=== PATIENT | male | born 1975 ===

== ENCOUNTER 2020-07-19 02:28 | Inpatient (IN) | payer SELFPAY ==
[~2020-07-19] VITALS: Ht 172 cm; Wt 100.9 kg
[2020-07-19] VITALS (16 sets, daily range): BP systolic 132–177; BP diastolic 72–112
[~2020-07-19 02:28] MED LIST: ATOR40TA PO; GLYB5TAB6 PO; METF-380 PO; OMEG1CAP51 PO; OMEG1CAP74 PO; OMEP40CA36 PO; QUIN20TA PO
[2020-07-19] MEDS ORDERED: NS IV 1000 ML 1,000 ML IV SCH ×3 (02:51→16:20)
[2020-07-19] MEDS ORDERED: PANTOPRAZOLE 40 MG (PROTONIX) VIAL IV ONE (03:00)
[2020-07-19] MEDS ORDERED: ONDANSETRON 4 MG/2 ML (SDV) Z0FRAN IVP ONE ×2 (03:00→08:15)
[2020-07-19 03:07] LABS: BASOPHILS # (AUTO) 0.1 10^3/uL (0.0-0.1); BASOPHILS % (AUTO) 0 % (0-10); EOSINOPHILS % (AUTO) 0 % (0-10); HEMATOCRIT 41 % (40-54); HEMOGLOBIN 21.2 g/dL (13.3-17.7); LYMPHOCYTES # (AUTO) 1.8 10^3/uL (1.0-4.0); LYMPHOCYTES % (AUTO) 11 % (12-44); MEAN CORPUSCULAR HEMOGLOBIN 46 pg (25-34); MEAN CORPUSCULAR HGB CONC 52 g/dL (32-36); MEAN CORPUSCULAR VOLUME 88 fL (80-99); MEAN PLATELET VOLUME 10.8 fL (9.0-12.2); MONOCYTES # (AUTO) 0.8 10^3/uL (0.0-1.0); MONOCYTES % (AUTO) 5 % (0-12); NEUTROPHILS # (AUTO) 13.5 10^3/uL (1.8-7.8); NEUTROPHILS % (AUTO) 83 % (42-75); PLATELET COUNT 333 10^3/uL (130-400); WHITE BLOOD COUNT 16.2 10^3/uL (4.3-11.0)
--- NOTE | 2020-07-19 03:08 | ED Abdominal Pain ---
General Chief Complaint: Abdominal/GI Problems Stated Complaint: ABD PAIN,N/V Nursing Triage Note: Pt had sudden onset abdomnal pain yesterday; denies fever/n/v/d. Sepsis Screen: No Definite Risk Source of Information: Patient (LIMITED HISTORIAN) (LUZMA JENSEN DO) History of Present Illness Date Seen by Provider: Jul 19, 2020 Time Seen by Provider: 02:47 Initial Comments PT ARRIVES VIA POV FROM HOME C/O EPIGASTRIC AND LUQ PAIN RADIATING TO LEFT FLANK, SINCE YESTERDAY C/O NAUSEA, NO VOMITING--ATE NOODLES AROUND 1700 LAST BM YESTERDAY AFTERNOON NO FEVER, BUT HAS NOT CHECKED TEMP NO PROBLEMS URINATING AND VOIDING A NORMAL AMOUNT PT IS INSULIN DEPENDENT DIABETIC, BUT HAS NOT CHECKED BLOOD SUGAR LATELY PT STATES HE HAS HAD THE SAME THING IN THE PAST, BUT DOES NOT KNOW WHAT HE WAS DX WITH ADMITTED HERE 09/2011 WITH PANCREATITIS DENIES RECENT ALCOHOL USE PT WAS ADMITTED HERE IN 2005 WITH DKA PCP: [facility] (LUZMA JENSEN DO) Allergies and Home Medications Allergies Coded Allergies: NKANo Known Allergies (Verified Allergy, Unknown, 08/11/06) Home Medications Atorvastatin Calcium 40 Mg Tablet, 1 EACH PO DAILY, (Reported) Glyburide 5 Mg Tablet, 1 EACH PO BIDAC, (Reported) Metformin Hcl 1,000 Mg Tablet, 1 EACH PO BID WITH MEALS, (Reported) Compton-3 Fatty Acids/Fish Oil 1 Each Capsule, 2 EACH PO TID, (Reported) Omeprazole 40 Mg Capsule.dr, 40 MG PO DAILY, (Reported) Patient Home Medication List Home Medication List Reviewed: Yes (LUZMA JENSEN DO) Review of Systems Review of Systems Constitutional: no symptoms reported; No chills, No diaphoresis, No fever Respiratory: No Symptoms Reported Cardiovascular: No Symptoms Reported; Denies Chest Pain Gastrointestinal: See HPI, Abdominal Pain; Denies Constipated, Denies Diarrhea; Nausea, Poor Appetite; Denies Vomiting Genitourinary: No Symptoms Reported Musculoskeletal: see HPI, back pain Skin: no symptoms reported Psychiatric/Neurological: No Symptoms Reported Endocrine: No Symptoms Reported Hematologic/Lymphatic: No Symptoms Reported (LUZMA JENSEN DO) Past Rytdgho-Wpfreg-Cxhrue Hx Past Med/Social Hx: Reviewed and Corrections made (LUZMA JENSEN DO) Patient Social History Alcohol Use: Rarely Uses Recreational Drug Use: No Smoking Status: Current Everyday Smoker (1/2 PPD) Type Used: Cigarettes Recent Foreign Travel: No Contact w/Someone Who Travel: No Recent Infectious Disease Expo: No (LUZMA JENSEN DO) Immunizations Up To Date Date of Pneumonia Vaccine: Jul 23, 2006 Date of Influenza Vaccine: Aug 23, 2011 (LUZMA JENSEN DO) Past Medical History Surgeries: No Respiratory: No Cardiac: Yes High Cholesterol, Hypertension Neurological: No Reproductive Disorders: No Genitourinary: No Gastrointestinal: Yes (09/2011-ADMITTED WITH PANCREATITIS) Pancreatitis Musculoskeletal: No Endocrine: Yes (HX OF DKA) Diabetes, Insulin dep HEENT: No Cancer: No Psychosocial: No Integumentary: No Blood Disorders: No (LUZMA JENSEN DO) Physical Exam Vital Signs Vital Signs - First Documented 07/19/20 02:49 Temp 36.9 Pulse 103 Resp 24 B/P (MAP) 163/87 (112) Pulse Ox 94 O2 Delivery Room Air (ANETA HOYOS MD) Vital Signs Capillary Refill : Less Than 3 Seconds (LUZMA JENSEN DO) Height/Weight/BMI Height: 5'8.00" Weight: 210lbs. oz. 95.776648ds; 37.00 BMI Method: General Appearance: obese, other (LOOKS UNCOMFORTABLE, MOANING, HYPERVENTILATING) HEENT: PERRL/EOMI; No scleral icterus (R), No scleral icterus (L) Neck: normal inspection Respiratory: normal breath sounds, no respiratory distress, no accessory muscle use Cardiovascular: normal peripheral pulses, regular rate, rhythm, no edema, no murmur Gastrointestinal: abnormal bowel sounds (RARE), distended (VERY FIRM), rebound (EUQIVOCAL), tenderness (MIDL RUQ TENDERNESS, MODERATE EPIGASTRIC AND LUQ TENDERNESS, MILD LEFT FLANK TENDERNESS); No hernia, No mass Extremities: normal inspection, no pedal edema, normal capillary refill Back: CVA tenderness (L) 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, no motor/sensory deficits, alert, oriented x 3 Skin: warm/dry; No rash (LUZMA JENSEN DO) Progress/Results/Core Measures Results/Orders Lab Results Laboratory Tests Test 07/19/20 00:00 07/19/20 02:56 07/19/20 03:00 Range/Units Urine Color YELLOW Urine Clarity SL CLOUDY Urine pH 5.0 5-9 Urine Specific [place] 1.025 H 1.016-1.022 Urine Protein NEGATIVE NEGATIVE Urine Glucose (UA) 3+ H NEGATIVE Urine Ketones 3+ H NEGATIVE Urine Nitrite NEGATIVE NEGATIVE Urine Bilirubin NEGATIVE NEGATIVE Urine Urobilinogen 0.2 < = 1.0 MG/DL Urine Leukocyte Esterase NEGATIVE NEGATIVE Urine RBC (Auto) NEGATIVE NEGATIVE Urine RBC NONE /HPF Urine WBC NONE /HPF Urine Squamous Epithelial Cells RARE /HPF Urine Crystals NONE /LPF Urine Bacteria NEGATIVE /HPF Urine Casts NONE /LPF Urine Mucus NEGATIVE /LPF Urine Culture Indicated NO Glucometer 295 H 70-110 MG/DL White Blood Count 16.2 H 4.3-11.0 10^3/uL Red Blood Count 4.62 4.30-5.52 10^6/uL Hemoglobin 21.2 H 13.3-17.7 g/dL Hematocrit 41 40-54 % Mean Corpuscular Volume 88 80-99 fL Mean Corpuscular Hemoglobin 46 H 25-34 pg Mean Corpuscular Hemoglobin Concent 52 H 32-36 g/dL Red Cell Distribution Width 13.6 10.0-14.5 % Platelet Count 333 130-400 10^3/uL Mean Platelet Volume 10.8 9.0-12.2 fL Immature Granulocyte % (Auto) 1 % Neutrophils (%) (Auto) 83 H 42-75 % Lymphocytes (%) (Auto) 11 L 12-44 % Monocytes (%) (Auto) 5 0-12 % Eosinophils (%) (Auto) 0 0-10 % Basophils (%) (Auto) 0 0-10 % Neutrophils # (Auto) 13.5 H 1.8-7.8 10^3/uL Lymphocytes # (Auto) 1.8 1.0-4.0 10^3/uL Monocytes # (Auto) 0.8 0.0-1.0 10^3/uL Eosinophils # (Auto) 0.0 0.0-0.3 10^3/uL Basophils # (Auto) 0.1 0.0-0.1 10^3/uL Immature Granulocyte # (Auto) 0.1 0.0-0.1 10^3/uL Neutrophils % (Manual) 69 % Lymphocytes % (Manual) 9 % Monocytes % (Manual) 5 % Basophils % (Manual) 1 % Myelocytes % 2 % Band Neutrophils 13 % Nucleated Red Blood Cells 2 Atypical Lymphocytes 1 % Hypochromasia MARKED Poikilocytosis SLIGHT Basophilic Stippling MODERATE Anisocytosis MODERATE Microcytosis MODERATE Prothrombin Time 12.8 12.2-14.7 SEC INR Comment 0.9 0.8-1.4 Activated Partial Thromboplast Time 33 24-35 SEC Sodium Level 129 L 135-145 MMOL/L Potassium Level 3.4 L 3.6-5.0 MMOL/L Chloride Level 104 98-107 MMOL/L Carbon Dioxide Level < 25 21-32 MMOL/L Anion Gap 5-14 MMOL/L Blood Urea Nitrogen < 10 7-18 MG/DL Creatinine < 1.00 0.60-1.30 MG/DL Estimat Glomerular Filtration Rate > 60 BUN/Creatinine Ratio 10 Glucose Level 125 H 70-105 MG/DL Calcium Level 8.9 8.5-10.1 MG/DL Corrected Calcium 8.6 8.5-10.1 MG/DL Magnesium Level < 3.0 H 1.6-2.4 MG/DL Total Bilirubin 0.4 0.1-1.0 MG/DL Aspartate Amino Transf (AST/SGOT) 25 5-34 U/L Alkaline Phosphatase 71 40-136 U/L Total Protein 13.0 H 6.4-8.2 GM/DL Albumin 4.4 3.2-4.5 GM/DL Triglycerides Level 4658 H <150 MG/DL Cholesterol Level 549 H < 200 MG/DL LDL Cholesterol Direct 36 1-129 MG/DL VLDL Cholesterol 932 H 5-40 MG/DL HDL Cholesterol < 15 L 40-60 MG/DL Amylase Level 1223 H 25-125 U/L Lipase 2844 H 8-78 U/L Serum Alcohol <10 MG/DL (ANETA HOYOS MD) Medications Given in ED Current Medications Medications Dose Ordered Sig/Tran Route Start Time Stop Time Status Last Admin Dose Admin Fentanyl Citrate 50 mcg ONCE ONCE IVP 07/19/20 03:15 07/19/20 03:16 DC 07/19/20 03:11 50 MCG Ondansetron HCl 4 mg ONCE ONCE IVP 07/19/20 03:00 07/19/20 03:01 DC 07/19/20 03:08 4 MG Pantoprazole 40 mg ONCE ONCE IV 07/19/20 03:00 07/19/20 03:01 DC 07/19/20 03:08 40 MG (ANETA HOYOS MD) Vital Signs/I&O 07/19/20 07/19/20 02:49 06:37 Temp 36.9 Pulse 103 104 Resp 24 22 B/P (MAP) 163/87 (112) 160/88 Pulse Ox 94 97 O2 Delivery Room Air Room Air (ANETA HOYOS MD) Blood Pressure Mean: 112 Progress Progress Note : Progress Note PT GIVEN ZOFRAN, PROTONIX AND FENTANYL--NAUSEA RESOLVED, BUT NO IMPROVEMENT IN PAIN GIVEN MORPHINE-- GIVEN IV FLUIDS PT'S BLOOD WAS EXTREMELY LIPEMIC, AND UNABLE TO COMPLETE CHEMISTRY TESTS AFTER 2 LITERS OF FLUIDS, LAB REDRAWN 0600--CARE TURNED OVER TO DR. HOYSO, LAB AND CT PENDING (LUZMA JENSEN DO) Progress Note : Progress Note 0615: I have assumed care of the patient and reevaluated him. Pain is currently improved and nausea has resolved. He is resting peacefully. I discussed with him CT findings showing pancreatitis and he believes he is had that before. We are pending labs and I anticipate admission for pancreatitis. He is receiving his third liter of fluid currently. Monitor patient. 0705: We are still pending chemistry component including creatinine. I called lab and they're having difficulty due to the extreme lipemia and are continuing dilutions. I discussed with lab regarding the alcohol level and I do not believe the results as correct as it is incompatible with life. Patient is talking without difficulty and overall feeling better currently so I believe this is solution problem related and lipemia related. Pending labs. 0731: I have spoken with Dr. Mayes. Serum creatinine is noted to be less than 1. He is quite concentrated and quite lipemic. Patient will be admitted to the ICU and she has requested consult with Dr. Anne which was done. Patient has received a total of 3 L of IV fluid and we will continue normal saline at 200 mL an hour and the ICU. Admit, inpatient status. Patient agrees with plan. (ANETA HOYOS MD) Initial ECG Impression Date: Jul 19, 2020 Initial ECG Impression Time: 02:57 Initial ECG Rate: 92 Initial ECG Rhythm: Normal Sinus Initial ECG Comparisson: No Previous ECG Available (LUZMA JENSEN DO) Diagnostic Imaging Comments ABDOMINAL XRAYS--SBO VS ILEUS, PENDING RADIOLOGIST REVIEW (MIKEYLUZMA Padmini GOETZ) Diagonstic Imaging: CT Plain Films/CT/US/NM/MRI: abdomen, pelvis Comments [facility] [place], [place] NAME: [facility] REC#: [id number] PT STATUS: REG ER : 1975 PHYSICIAN: LUZMA JENSEN DO ADMIT DATE: 07/19/20/ER Draft Date of Exam:07/19/20 CT ABD/PELVIS WO(KIDNEY STONE) PROCEDURE: CT urinary tract, rule out kidney stone. TECHNIQUE: Multiple contiguous axial images were obtained through the abdomen and pelvis without the use of intravenous contrast. Auto Exposure Controls were utilized during the CT exam to meet ALARA standards for radiation dose reduction. INDICATION: Diffuse abdominal pain. COMPARISON: 10/21/2011. DISCUSSION: Atelectasis or scarring noted within the lung bases. Normal heart size. No pleural or pericardial fluid. Fatty hepatomegaly is present. The gallbladder is unremarkable. Marked inflammatory changes are noted along the entirety of the pancreas suggesting acute pancreatitis. No abscess or pseudocyst formation identified. The stomach, spleen, and adrenal glands are unremarkable. No renal stone or hydronephrosis. No obstruction, pneumatosis, or pneumoperitoneum. The prostate and urinary bladder are unremarkable. The appendix is normal. No ascites or pathologically enlarged lymph nodes identified. No acute osseous abnormality identified. Advanced degenerative disc disease noted at L5-S1. IMPRESSION: 1. Inflammatory changes noted along the pancreas as described, consistent with acute pancreatitis. 2. Agree with preliminary report. Dictated on workstation # [id number] Dict: 07/19/20 0647 Trans: 07/19/20 0651 [facility] [id number] Interpreted by: MARAL GUTIERREZ MD Electronically signed by: Reviewed: Reviewed Ninfa Ortega Study, Reviewed by Sd Diagonstic Imaging: Xray Plain Films/CT/US/NM/MRI: abdomen Comments [facility]. [place], [place] NAME: [facility] REC#: [id number] PT STATUS: REG ER : 1975 PHYSICIAN: LUZMA JENSEN DO ADMIT DATE: 07/19/20/ER Signed Date of Exam:07/19/20 ACUTE ABD SERIES Indication: Epigastric pain Abdomen series PA chest, supine and upright abdominal images are obtained IMPRESSION: Lungs are clear. There is no intraperitoneal free air. There is moderate gaseous distention of the small bowel. There is a moderate amount of stool in the colon which is relatively decompressed. IMPRESSION: Abnormal gas pattern. This could represent early small bowel obstruction. Dictated by: Dictated on workstation # [id number] Dict: 07/19/2047 Trans: 07/19/2048 [id number] Interpreted by: ANETA WALDROP MD Electronically signed by: ANETA WALDROP MD 07/19/2048 (ANETA HOYOS MD) Departure Communication (Admissions) Time/Spoke to Admitting Phy: 07:26 (ANETA HOYOS MD) Impression Primary Impression: Acute pancreatitis Qualified Codes: K85.90 - Acute pancreatitis without necrosis or infection, unspecified Additional Impressions: Uncontrolled diabetes mellitus Qualified Codes: E11.65 - Type 2 diabetes mellitus with hyperglycemia Hyperlipidemia Qualified Codes: E78.5 - Hyperlipidemia, unspecified Disposition: ADMITTED INPATIENT Condition: Stable Admissions Decision to Admit Reason: Admit from ER (General) Decision to Admit/Date: Jul 19, 2020 Time/Decision to Admit Time: 06:00 (ANETA HOYOS MD) Departure-Patient Inst. Referrals: [facility] (PCP) Primary Care Physician MALA WILDER (Family) Primary Care Physician LUZMA JENSEN DO Jul 19, 2020 03:08 ANETA HOYOS MD Jul 19, 2020 06:20
[2020-07-19] MEDS ORDERED: fentaNYL INJECTION 100 MCG/2 ML AMP IVP ONE (03:15)
[2020-07-19 03:19] LABS: INR 0.9 (0.8-1.4); PROTHROMBIN TIME PATIENT 12.8 SEC (12.2-14.7)
--- NOTE | 2020-07-19 03:29 | NUR ---
Late entry: Pt arrives with c/o diffuse abdominal pain to his epigastric area that radiates to his LUQ and around to his back. Pt denies n/v/d and fever. Pt states pain started yesterday afternoon. Pt is an IDDM who is non-compliant with his blood sugar checks; he states he hasn't checked his blood sugar in over 2 wks. Pt states that he had a similar episode like this a few years ago but can't remember the diagnosis. Pt to room; onto monitor. IV started, labs sent. Dr. Arboleda to room for eval. Meds given as ordered.
[2020-07-19 03:40] LABS: BILIRUBIN,URINE NEGATIVE (NEGATIVE); CLARITY,URINE SL CLOUDY; COLOR,URINE YELLOW; GLUCOSE, URINE (UA) 3+ (NEGATIVE); KETONES,URINE 3+ (NEGATIVE); LEUKOCYTE ESTERASE ,URINE NEGATIVE (NEGATIVE); NITRITE,URINE NEGATIVE (NEGATIVE); PROTEIN,URINE NEGATIVE (NEGATIVE)
[2020-07-19] MEDS ORDERED: fentaNYL INJECTION 100 MCG/2 ML AMP IVP STA (03:50)
[2020-07-19] MEDS: NS IV 1000 ML 1,000 ML IV SCH ×3 (04:00→18:30)
--- NOTE | 2020-07-19 04:06 | NUR ---
Lab called and notified Dr. Arboleda that pt's lab samples were lipemic. Labs will be delayed.
[2020-07-19 04:11] LABS: BACTERIA,URINE NEGATIVE /HPF; SQUAMOUS EPITHELIAL CELL,UR RARE /HPF
[2020-07-19 04:14] LABS: BAND NEUTROPHILS 13 %; LYMPHOCYTES % (MANUAL) 9 %; MONOCYTES % (MANUAL) 5 %; NEUTROPHILS % (MANUAL) 69 %
[2020-07-19 04:15] LABS: ANISOCYTOSIS MODERATE; ATYPICAL LYMPHOCYTES 1 %; BASOPHILS % (MANUAL) 1 %; HYPOCHROMASIA MARKED; MICROCYTOSIS MODERATE; MYELOCYTES % 2 %; NUCLEATED RED BLOOD CELLS 2; POIKILOCYTOSIS SLIGHT
--- NOTE | 2020-07-19 04:55 | NUR ---
Pt to CT by cart.
[2020-07-19] MEDS ORDERED: morphine INJ 10 MG/ML 1ML (SYR OR VIAL) IVP STA (05:24)
--- NOTE | 2020-07-19 06:30 | NUR ---
Report to DILMA Rogers
--- NOTE | 2020-07-19 06:34 | NUR ---
TELEPHONE REPORT RECEIVED FROM ED AT THIS TIME.
--- NOTE | 2020-07-19 06:50 | Diagnostic Imaging Report ---
Indication: Epigastric pain Abdomen series PA chest, supine and upright abdominal images are obtained IMPRESSION: Lungs are clear. There is no intraperitoneal free air. There is moderate gaseous distention of the small bowel. There is a moderate amount of stool in the colon which is relatively decompressed. IMPRESSION: Abnormal gas pattern. This could represent early small bowel obstruction. Dictated by: Dictated on workstation # [id number]
--- NOTE | 2020-07-19 06:51 | Diagnostic Imaging Report ---
PROCEDURE: CT urinary tract, rule out kidney stone. TECHNIQUE: Multiple contiguous axial images were obtained through the abdomen and pelvis without the use of intravenous contrast. Auto Exposure Controls were utilized during the CT exam to meet ALARA standards for radiation dose reduction. INDICATION: Diffuse abdominal pain. COMPARISON: 10/21/2011. DISCUSSION: Atelectasis or scarring noted within the lung bases. Normal heart size. No pleural or pericardial fluid. Fatty hepatomegaly is present. The gallbladder is unremarkable. Marked inflammatory changes are noted along the entirety of the pancreas suggesting acute pancreatitis. No abscess or pseudocyst formation identified. The stomach, spleen, and adrenal glands are unremarkable. No renal stone or hydronephrosis. No obstruction, pneumatosis, or pneumoperitoneum. The prostate and urinary bladder are unremarkable. The appendix is normal. No ascites or pathologically enlarged lymph nodes identified. No acute osseous abnormality identified. Advanced degenerative disc disease noted at L5-S1. IMPRESSION: 1. Inflammatory changes noted along the pancreas as described, consistent with acute pancreatitis. 2. Agree with preliminary report. Dictated by: Dictated on workstation # [id number]
--- NOTE | 2020-07-19 07:18 | NUR ---
REPORT CALLED BY BRETT TO FLOOR WATING FOR ORDER TO BE WRITTEN. FOR ADMIT.
--- NOTE | 2020-07-19 07:29 | NUR ---
ROOM CHANGED TO ICU. Addendum: 07/19/20 at 0738 by PMCCLURE CALLED FOR ROOM
--- NOTE | 2020-07-19 07:34 | NUR ---
TO ROOM NO NEW C/O PATIENT INFORMED GOING TO ICU INSTEAD OF 4TH FLOOR.
--- NOTE | 2020-07-19 07:38 | NUR ---
ICU WILL CALL WHEN READY FOR PATIENT.
--- NOTE | 2020-07-19 07:49 | NUR ---
CALLED AND GAVE UPDATE TO GAIL
--- NOTE | 2020-07-19 07:53 | NUR ---
ICE CHIPS GIVEN
[2020-07-19] MEDS ORDERED: morphine INJ 10 MG/ML 1ML (SYR OR VIAL) IVP ONE (08:00)
--- NOTE | 2020-07-19 08:07 | NUR ---
Ashok delaney in [facility] - 07/19/20 at 0808 by PMCCLURE PATIENT C/O NAUSEA AFTER MORPHINE GIVEN.
--- NOTE | 2020-07-19 08:08 | NUR ---
C/O NAUSEA AFTER PAIN MEDS
--- NOTE | 2020-07-19 08:12 | NUR ---
VODIED 1000CC
[2020-07-19 08:21] LABS: BILIRUBIN,TOTAL 0.4 MG/DL (0.1-1.0); CALCIUM 8.8 MG/DL (8.5-10.1); CARBON DIOXIDE 10 MMOL/L (21-32); CHLORIDE 103 MMOL/L (98-107); GLUCOSE 252 MG/DL (70-105); POTASSIUM 3.6 MMOL/L (3.6-5.0)
[2020-07-19 08:22] LABS: ALBUMIN 4.3 GM/DL (3.2-4.5); CHOLESTEROL 557 MG/DL (< 200); HDL CHOLESTEROL 17 MG/DL (40-60); TOTAL PROTEIN 13.1 GM/DL (6.4-8.2)
[2020-07-19 08:23] LABS: AMYLASE 1215 U/L (25-125); SODIUM 128 MMOL/L (135-145)
[2020-07-19 08:30] LABS: BUN/CREATININE RATIO 7; CREATININE SERUM 0.68 MG/DL (0.60-1.30); GFR ESTIMATED > 60; MAGNESIUM 1.6 MG/DL (1.6-2.4)
[2020-07-19 08:31] LABS: ALANINE AMINOTRANSFERASE 28 U/L (0-55); ALKALINE PHOSPHATASE 78 U/L (40-136)
[2020-07-19 08:32] LABS: TRIGLYCERIDES 7120 MG/DL (<150)
[2020-07-19 08:33] LABS: LIPASE 2656 U/L (8-78)
[2020-07-19] MEDS ORDERED: ONDANSETRON 4 MG/2 ML (SDV) Z0FRAN IV PRN (08:45)
--- NOTE | 2020-07-19 09:57 | Consultation - Surgery ---
History of Present Illness History of Present Illness Patient Consulted On(segundo/time) 07/19/20 09:51 Time Seen by Provider: 08:51 History of Present Illness Surgery asked to consult regarding Pancreatitis. HPI per ED: PT ARRIVES VIA POV FROM HOME C/O EPIGASTRIC AND LUQ PAIN RADIATING TO LEFT FLANK, SINCE YESTERDAY C/O NAUSEA, NO VOMITING--ATE NOODLES AROUND 1700 LAST BM YESTERDAY AFTERNOON NO FEVER, BUT HAS NOT CHECKED TEMP, NO PROBLEMS URINATING AND VOIDING A NORMAL AMOUNT PT IS INSULIN DEPENDENT DIABETIC, BUT HAS NOT CHECKED BLOOD SUGAR LATELY PT STATES HE HAS HAD THE SAME THING IN THE PAST, BUT DOES NOT KNOW WHAT HE WAS DX WITH. PT WAS ADMITTED HERE IN 2005 WITH DKA When I spoke to pt this am he states his pain is still severe, 10 out of 10 if he moves. He denies ever being told he has gallstones or having his gallbladder checked. Pain meds help a little. Pain radiates straight through to back. Allergies and Home Medications Allergies Coded Allergies: NKANo Known Allergies (Verified Allergy, Unknown, 08/11/06) Home Medications Atorvastatin Calcium 40 Mg Tablet, 1 EACH PO DAILY, (Reported) Glyburide 5 Mg Tablet, 1 EACH PO BIDAC, (Reported) Metformin Hcl 1,000 Mg Tablet, 1 EACH PO BID WITH MEALS, (Reported) [place]-3 Fatty Acids/Fish Oil 1 Each Capsule, 2 EACH PO TID, (Reported) Omeprazole 40 Mg Capsule.dr, 40 MG PO DAILY, (Reported) Patient Home Medication List Home Medication List Reviewed: Yes Past Igirhpr-Utazzv-Pasrhs Hx Patient Social History Alcohol Use: Occasionally Uses Recreational Drug Use: No Smoking Status: Former Smoker Type Used: Cigarettes Recent Foreign Travel: No Contact w/Someone Who Travel: No Recent Infectious Disease Expo: No Immunizations Up To Date Date of Pneumonia Vaccine: Jul 23, 2006 Date of Influenza Vaccine: Aug 23, 2011 Surgeries History of Surgeries: No Respiratory History of Respiratory Disorde: No Cardiovascular History of Cardiac Disorders: Yes Cardiac Disorders: High Cholesterol, Hypertension Neurological History of Neurological Disord: No Reproductive System Hx Reproductive Disorders: No Genitourinary History of Genitourinary Disor: No Gastrointestinal History of Gastrointestinal Di: No Musculoskeletal History of Musculoskeletal Dis: No Endocrine History of Endocrine Disorders: Yes (HX OF DKA) Endocrine Disorders: Diabetes, Insulin dep HEENT History of HEENT Disorders: No Cancer History of Cancer: No Psychosocial History of Psychiatric Problem: No Integumentary History of Skin or Integumenta: No Blood Transfusions History of Blood Disorders: No Family Medical History Significant Family History: Diabetes (parents) Review of Systems-General Constitutional: chills, diaphoresis, malaise, weakness EENTM: blurred vision; No double vision, No mouth pain, No mouth swelling, No epistaxis Respiratory: No dyspnea on exertion, No hemoptysis, No short of breath Cardiovascular: No chest pain, No edema, No Hx of Intervention, No palpitations Gastrointestinal: abdominal pain; No dysphagia, No hematemesis, No jaundice; nausea; No vomiting Genitourinary: No dysuria, No frequency, No hematuria Musculoskeletal: joint pain, joint swelling, muscle pain, muscle stiffness Skin: No change in color, No change in hair/nails Psychiatric/Neurological: Denies Anxiety, Denies Depressed, Denies Seizure, Denies Tremors Other pt denies any hx of abnormal bleeding or bruising Physical Exam-General Problems Physical Exam Vital Signs Vital Signs - First Documented 07/19/20 07/19/20 02:49 07:43 Temp 36.9 Pulse 103 Resp 24 B/P (MAP) 163/87 (112) Pulse Ox 94 O2 Delivery Room Air O2 Flow Rate 2.00 Capillary Refill : Less Than 3 Seconds General Appearance: WD/WN, mild distress Eyes: Bilateral Eye PERRL, Bilateral Eye EOMI HEENT: pharynx normal; No scleral icterus (R), No scleral icterus (L) Neck: non-tender, full range of motion, supple, normal inspection Respiratory: chest non-tender, lungs clear, normal breath sounds, no respiratory distress, no accessory muscle use Cardiovascular: no murmur, tachycardia Gastrointestinal: no organomegaly, distended, guarding, tenderness (diffusely) Back: no CVA tenderness, no vertebral tenderness Extremities: no pedal edema, no calf tenderness, normal capillary refill 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, no motor/sensory deficits, alert, normal mood/affect, oriented x 3 Skin: normal color, warm/dry Lymphatic: no adenopathy (neck, axilla or groin) Data Review Labs Laboratory Tests 07/19/20 00:00: Urine Color YELLOW, Urine Clarity SL CLOUDY, Urine pH 5.0, Urine Specific [place] 1.025H, Urine Protein NEGATIVE, Urine Glucose (UA) 3+H, Urine Ketones 3+H, Urine Nitrite NEGATIVE, Urine Bilirubin NEGATIVE, Urine Urobilinogen 0.2, Urine Leukocyte Esterase NEGATIVE, Urine RBC (Auto) NEGATIVE, Urine RBC NONE, Urine WBC NONE, Urine Squamous Epithelial Cells RARE, Urine Crystals NONE, Urine Bacteria NEGATIVE, Urine Casts NONE, Urine Mucus NEGATIVE, Urine Culture Indicated NO 07/19/20 02:56: Glucometer 295H 07/19/20 03:00: White Blood Count 16.2H, Red Blood Count 4.62, Hemoglobin 21.2H, Hematocrit 41, Mean Corpuscular Volume 88, Mean Corpuscular Hemoglobin 46H, Mean Corpuscular Hemoglobin Concent 52H, Red Cell Distribution Width 13.6, Platelet Count 333, Mean Platelet Volume 10.8, Immature Granulocyte % (Auto) 1, Neutrophils (%) (Auto) 83H, Lymphocytes (%) (Auto) 11L, Monocytes (%) (Auto) 5, Eosinophils (%) (Auto) 0, Basophils (%) (Auto) 0, Neutrophils # (Auto) 13.5H, Lymphocytes # (Auto) 1.8, Monocytes # (Auto) 0.8, Eosinophils # (Auto) 0.0, Basophils # (Auto) 0.1, Immature Granulocyte # (Auto) 0.1, Neutrophils % (Manual) 69, Lymphocytes % (Manual) 9, Monocytes % (Manual) 5, Basophils % (Manual) 1, Myelocytes % 2, Band Neutrophils 13, Nucleated Red Blood Cells 2, Atypical Lymphocytes 1, Hypochromasia MARKED, Poikilocytosis SLIGHT, Basophilic Stippling MODERATE, Ani socytosis MODERATE, Microcytosis MODERATE, Prothrombin Time 12.8, INR Comment 0.9, Activated Partial Thromboplast Time 33 07/19/20 05:32: Sodium Level 128L, Potassium Level 3.6, Chloride Level 103, Carbon Dioxide Level 10L, Anion Gap 15H, Blood Urea Nitrogen 5L, Creatinine 0.68, Estimat Glomerular Filtration Rate > 60, BUN/Creatinine Ratio 7, Glucose Level 252H, Calcium Level 8.8, Corrected Calcium 8.6, Magnesium Level 1.6, Total Bilirubin 0.4, Aspartate Amino Transf (AST/SGOT) 24, Alanine Aminotransferase (ALT/SGPT) 28, Alkaline Phosphatase 78, Total Protein 13.1H, Albumin 4.3, Triglycerides Level 7120H, Cholesterol Level 557H, LDL Cholesterol Direct 40, VLDL Cholesterol , HDL Cholesterol 17L, Amylase Level 1215H, Lipase 2656H, Serum Alcohol < 40H Radiology Date of Exam:07/19/20 CT ABD/PELVIS WO(KIDNEY STONE) PROCEDURE: CT urinary tract, rule out kidney stone. TECHNIQUE: Multiple contiguous axial images were obtained through the abdomen and pelvis without the use of intravenous contrast. Auto Exposure Controls were utilized during the CT exam to meet ALARA standards for radiation dose reduction. INDICATION: Diffuse abdominal pain. COMPARISON: 10/21/2011. DISCUSSION: Atelectasis or scarring noted within the lung bases. Normal heart size. No pleural or pericardial fluid. Fatty hepatomegaly is present. The gallbladder is unremarkable. Marked inflammatory changes are noted along the entirety of the pancreas suggesting acute pancreatitis. No abscess or pseudocyst formation identified. The stomach, spleen, and adrenal glands are unremarkable. No renal stone or hydronephrosis. No obstruction, pneumatosis, or pneumoperitoneum. The prostate and urinary bladder are unremarkable. The appendix is normal. No ascites or pathologically enlarged lymph nodes identified. No acute osseous abnormality identified. Advanced degenerative disc disease noted at L5-S1. IMPRESSION: 1. Inflammatory changes noted along the pancreas as described, consistent with acute pancreatitis. 2. Agree with preliminary report. Dictated on workstation # [id number] Dict: 07/19/20 0647 Trans: 07/19/20 0651 [facility] [id number] Interpreted by: MARAL GUTIERREZ MD Electronically signed by: Assessment/Plan Assessment/Plan Assessment/Plan Pancreatitis Hypertriglyceridemia Cholesterolemia Dehydration Hyponatremia Hyperglycemia Pt needs IV fluids, pain control, anti-emetics and monitor labs. Pt will need an US of gallbladder tomorrow, but most likely his pancreatitis is due to his Triglycerides. Max medical management, nothing surgical at this point. Clinical Quality Measures DVT/VTE Risk/Contraindication: Risk Factor Score Per Nursin RFS Level Per Nursing on Admit: 3=High NOE BARBOSA DO Jul 19, 2020 09:57
--- NOTE | 2020-07-19 11:08 | History & Physical-Hospitalist ---
History of Present Illness HPI/Chief Complaint CC: Abdominal pain HPI: This is a 45yoHM clinic patient of [facility] who presents to the ER with worsened abdominal pain for the past several days. 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 He has been 6 years and she is at the bedside. Triglycerides were elevated as the likely cause of acute pancreatitis noted on labs and CT scan. Dr Anne was consulted and will follow along. Hgb 20 so he is profoundly dehydrated and tachycardic. Dr Pinedo consulted. Source: patient, family, RN/MD Exam Limitations: no limitations Date Seen 07/19/20 Time Seen by a Provider: 11:00 Attending Physician Soni Mayes DO [facility] Referring Physician Date of Admission Jul 19, 2020 at 07:26 Home Medications & Allergies Home Medications Reviewed patient Home Medication Reconciliation performed by pharmacy medication reconciliations biometric fingerprinting technician and/or nursing. Patients Allergies have been reviewed. Allergies Allergies Coded Allergies NKANo Known Allergies (Verified Allergy, Unknown, 08/11/06) Past Caihrca-Mzguch-Ceqkfj Hx Past Med/Social Hx: Reviewed Nursing Past Med/Soc Hx, Reviewed and Corrections made Patient Social History Marrital Status: Employed/Student: employed Alcohol Use: Occasionally Uses Recreational Drug Use: No Smoking Status: Former Smoker Type Used: Cigarettes Recent Foreign Travel: No Contact w/other who traveled: No Recent Infectious Disease Expo: No Immunizations Up To Date Date of Pneumonia Vaccine: Jul 23, 2006 Date of Influenza Vaccine: Aug 23, 2011 Past Medical History Cardiac: High Cholesterol, Hypertension Reproductive: No Endocrine: Diabetes, Insulin dep History of Blood Disorders: No Family History Diabetes (parents) Review of Systems Constitutional: see HPI Gastrointestinal: abdominal pain, loss of appetite, nausea, vomiting Physical Exam Physical Exam Vital Signs Vital Signs - First Documented 07/19/20 07/19/20 02:49 07:43 Temp 36.9 Pulse 103 Resp 24 B/P (MAP) 163/87 (112) Pulse Ox 94 O2 Delivery Room Air O2 Flow Rate 2.00 Capillary Refill : Less Than 3 Seconds Height, Weight, BMI Height: 5'8.00" Weight: 210lbs. oz. 95.222230co; 34.37 BMI Method: General Appearance: Anxious, Chronically ill, Mild Distress, Obese Eyes: Right Eye Normal Inspection, Right Eye PERRL HEENT: PERRL/EOMI, Normal ENT Inspection, Pharynx Normal, Other (dry MM) Neck: Full Range of Motion, Normal Inspection, Non Tender Respiratory: Chest Non Tender, Lungs Clear, Normal Breath Sounds, No Accessory Muscle Use, No Respiratory Distress Cardiovascular: No Edema, No Gallop, No JVD, No Murmur, Normal Peripheral Pulses, Tachycardia Gastrointestinal: Normal Bowel Sounds, No Organomegaly, No Pulsatile Mass, Guarding, Tenderness Back: Normal Inspection, No CVA Tenderness, No Vertebral Tenderness Extremity: Normal Capillary Refill, Normal Inspection, Normal Range of Motion, Non Tender, No Calf Tenderness, No Pedal Edema Neurologic/Psychiatric: Alert, Oriented x3, No Motor/Sensory Deficits, Normal Mood/Affect, 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 Assessment/Plan Admission Diagnosis Assessment: Acute pancreatitis Profound dehydration Polycythemia secondary type DM HTN HLP Obesity Likely PARESH Plan: ICU care Aggressive IVF Consult Dr Pinedo Admission Status: Inpatient Order (span 2 midnights) Reason for Inpatient Admission: profound pancreatitis Diagnosis/Problems Diagnosis/Problems (1) Acute pancreatitis Status: Acute Qualifiers: Pancreatitis type: unspecified pancreatitis type Acute pancreatitis complication: unspecified Qualified Codes: K85.90 - Acute pancreatitis without necrosis or infection, unspecified (2) Uncontrolled diabetes mellitus Status: Acute Qualifiers: Diabetes mellitus type: type 2 Glycemic state: with hyperglycemia Qualified Codes: E11.65 - Type 2 diabetes mellitus with hyperglycemia (3) Hyperlipidemia Status: Acute Qualifiers: Hyperlipidemia type: unspecified Qualified Codes: E78.5 - Hyperlipidemia, unspecified Clinical Quality Measures DVT/VTE Risk/Contraindication: Risk Factor Score Per Nursin RFS Level Per Nursing on Admit: 3=High SONI MAYES DO Jul 19, 2020 11:08
[2020-07-19] MEDS: POTASSIUM CL 10MEQ/50ML IVPB 50 ML IV SCH ×11 (11:21→22:38)
[2020-07-19] MEDS: ENOXAPARIN 40 MG/0.4 ML (LOVENOX) SYR SC SCH (11:21)
[2020-07-19] MEDS: morphine INJ 10 MG/ML 1ML (SYR OR VIAL) IV PRN ×2 (11:23→20:26)
[2020-07-19] MEDS ORDERED: PIPERACILLIN/TAZOBACTAM (BULK) 4.5 GM in NS (IVPB) 100 ML IV NR (16:30)
[2020-07-19 16:44] LABS: BASOPHILS # (AUTO) 0.1 10^3/uL (0.0-0.1); BASOPHILS % (AUTO) 0 % (0-10); EOSINOPHILS % (AUTO) 0 % (0-10); HEMATOCRIT 45 % (40-54); HEMOGLOBIN 16.1 g/dL (13.3-17.7); LYMPHOCYTES # (AUTO) 1.4 10^3/uL (1.0-4.0); LYMPHOCYTES % (AUTO) 7 % (12-44); MEAN CORPUSCULAR HEMOGLOBIN 32 pg (25-34); MEAN CORPUSCULAR HGB CONC 36 g/dL (32-36); MEAN CORPUSCULAR VOLUME 89 fL (80-99); MEAN PLATELET VOLUME 11.1 fL (9.0-12.2); MONOCYTES # (AUTO) 0.9 10^3/uL (0.0-1.0); MONOCYTES % (AUTO) 5 % (0-12); NEUTROPHILS # (AUTO) 16.9 10^3/uL (1.8-7.8); NEUTROPHILS % (AUTO) 87 % (42-75); PLATELET COUNT 342 10^3/uL (130-400); WHITE BLOOD COUNT 19.5 10^3/uL (4.3-11.0)
[2020-07-19 16:55] LABS: CHLORIDE 112 MMOL/L (98-107); POTASSIUM 4.5 MMOL/L (3.6-5.0)
[2020-07-19 16:56] LABS: CALCIUM 9.3 MG/DL (8.5-10.1)
[2020-07-19 16:57] LABS: GLUCOSE 230 MG/DL (70-105); TRIGLYCERIDES 1096 MG/DL (<150)
[2020-07-19 16:58] LABS: TOTAL PROTEIN 7.3 GM/DL (6.4-8.2)
[2020-07-19 16:59] LABS: BILIRUBIN,TOTAL 0.3 MG/DL (0.1-1.0)
[2020-07-19 17:01] LABS: ALKALINE PHOSPHATASE 61 U/L (40-136); CREATININE SERUM 0.78 MG/DL (0.60-1.30); GFR ESTIMATED > 60; PHOSPHORUS 1.9 MG/DL (2.3-4.7)
[2020-07-19 17:02] LABS: BUN/CREATININE RATIO 5
[2020-07-19 17:04] LABS: ALANINE AMINOTRANSFERASE 25 U/L (0-55); MAGNESIUM 1.6 MG/DL (1.6-2.4)
[2020-07-19 17:13] LABS: CARBON DIOXIDE < 5 MMOL/L (21-32)
[2020-07-19] MEDS: 1/2 NS IV SOLUTION 1,000 ML IV SCH ×2 (17:14→20:06)
[2020-07-19 17:15] LABS: SODIUM 136 MMOL/L (135-145)
[2020-07-19] MEDS: D5 1/2 NS 1000 ML IV SOLUTION 1,000 ML IV SCH ×2 (17:30→22:38)
[2020-07-19] MEDS ORDERED: LACTATED RINGERS 1,000 ML IV ONE ×2 (18:15)
[2020-07-19 18:26] LABS: CLARITY,URINE CLEAR; COLOR,URINE YELLOW; GLUCOSE, URINE (UA) 3+ (NEGATIVE); KETONES,URINE 3+ (NEGATIVE); LEUKOCYTE ESTERASE ,URINE NEGATIVE (NEGATIVE); NITRITE,URINE NEGATIVE (NEGATIVE); PROTEIN,URINE 1+ (NEGATIVE)
[2020-07-19 18:36] LABS: BACTERIA,URINE TRACE /HPF; BILIRUBIN,URINE 1+ (NEGATIVE); SQUAMOUS EPITHELIAL CELL,UR 0-2 /HPF
[2020-07-19 21:26] LABS: CHLORIDE 115 MMOL/L (98-107); POTASSIUM 4.3 MMOL/L (3.6-5.0); SODIUM 137 MMOL/L (135-145)
[2020-07-19 21:28] LABS: CALCIUM 9.3 MG/DL (8.5-10.1); GLUCOSE 226 MG/DL (70-105)
[2020-07-19 21:32] LABS: CREATININE SERUM 0.64 MG/DL (0.60-1.30); GFR ESTIMATED > 60
[2020-07-19 21:33] LABS: BUN/CREATININE RATIO 6
[2020-07-19 21:46] LABS: CARBON DIOXIDE 9 MMOL/L (21-32)
[2020-07-19] MEDS: PIPERACILLIN/TAZOBACTAM (BULK) 4.5 GM in NS (IVPB) 100 ML IV SCH (22:38)
[2020-07-20] VITALS (24 sets, daily range): BP systolic 122–175; BP diastolic 69–106
[2020-07-20] MEDS: 1/2 NS IV SOLUTION 1,000 ML IV SCH ×6 (00:26→20:32)
[2020-07-20] MEDS: POTASSIUM CL 10MEQ/50ML IVPB 50 ML IV SCH ×7 (00:32→23:00)
[2020-07-20] MEDS: D5 1/2 NS 1000 ML IV SOLUTION 1,000 ML IV SCH ×4 (03:51→22:01)
--- NOTE | 2020-07-20 03:57 | Pulmonary Consultation ---
History of Present Illness History of Present Illness Date Seen by Provider: Jul 20, 2020 Time Seen by Provider: 03:51 Date of Admission Allergies and Home Medications Allergies Coded Allergies: NKANo Known Allergies (Verified Allergy, Unknown, 08/11/06) Home Medications Atorvastatin Calcium 40 Mg Tablet, 1 EACH PO DAILY, (Reported) Glyburide 5 Mg Tablet, 1 EACH PO BIDAC, (Reported) Metformin Hcl 1,000 Mg Tablet, 1 EACH PO BID WITH MEALS, (Reported) [place]-3 Fatty Acids/Fish Oil 1 Each Capsule, 2 EACH PO TID, (Reported) Omeprazole 40 Mg Capsule.dr, 40 MG PO DAILY, (Reported) Past Uccethj-Zuxjnd-Crbkxc Hx Past Med/Social Hx: Reviewed Nursing Past Med/Soc Hx, Reviewed and Corrections made Patient Social History Alcohol Use: Rarely Uses Recreational Drug Use: No Smoking Status: Current Everyday Smoker (1/2 PPD) Type Used: Cigarettes Recent Foreign Travel: No Contact w/Someone Who Travel: No Recent Infectious Disease Expo: No Immunizations Up To Date Date of Pneumonia Vaccine: Jul 23, 2006 Date of Influenza Vaccine: Aug 23, 2011 Past Medical History Surgeries: No Respiratory: No Cardiac: Yes High Cholesterol, Hypertension Neurological: No Reproductive Disorders: No Genitourinary: No Gastrointestinal: Yes (09/2011-ADMITTED WITH PANCREATITIS) Pancreatitis Musculoskeletal: No Endocrine: Yes (HX OF DKA) Diabetes, Insulin dep HEENT: No Cancer: No Psychosocial: No Integumentary: No Blood Disorders: No Family Medical History Diabetes (parents) Sepsis Event Evaluation Height, Weight, BMI Height: 5'8.00" Weight: 210lbs. oz. 95.436783iu; 34.37 BMI Method: Exam Exam Vital Signs Date Time Temp Pulse Resp B/P (MAP) Pulse Ox O2 Delivery O2 Flow Rate FiO2 07/20/20 03:35 36.8 07/20/20 02:00 112 31 161/86 (111) 94 Room Air 07/20/20 01:00 112 07/20/20 01:00 112 15 162/92 (115) 96 Room Air 07/20/20 00:00 114 22 151/85 (107) 94 Room Air 07/20/20 00:00 Room Air 07/19/20 23:39 36.8 07/19/20 23:00 116 22 159/72 (101) 96 Room Air 07/19/20 22:00 121 25 161/90 (113) 94 Room Air 07/19/20 21:10 118 29 177/99 (125) 95 Room Air 07/19/20 20:15 37.1 123 20 159/102 (121) 96 Room Air 07/19/20 20:00 36.9 07/19/20 20:00 Room Air 07/19/20 19:00 116 07/19/20 19:00 116 30 175/96 (122) 96 Room Air 07/19/20 18:30 36.6 07/19/20 18:00 146 19 160/91 (114) 93 Nasal Cannula 2.00 07/19/20 17:00 130 29 95 Nasal Cannula 2.00 07/19/20 16:00 38.0 07/19/20 16:00 Nasal Cannula 2.00 07/19/20 16:00 128 11 168/86 (113) 92 Nasal Cannula 2.00 07/19/20 15:56 Nasal Cannula 2.00 07/19/20 15:00 129 24 153/93 (113) 94 Nasal Cannula 2.00 07/19/20 14:00 128 27 145/89 (107) 94 Nasal Cannula 2.00 07/19/20 13:25 37.5 07/19/20 13:00 126 27 147/99 (115) 93 Nasal Cannula 2.00 07/19/20 12:52 129 07/19/20 12:00 Nasal Cannula 2.00 07/19/20 12:00 128 29 165/94 (117) 94 Nasal Cannula 2.00 07/19/20 11:00 122 34 161/101 (121) 96 Nasal Cannula 2.00 07/19/20 10:00 129 23 132/112 (119) 94 Nasal Cannula 2.00 07/19/20 09:41 37.6 127 18 164/89 95 Nasal Cannula 2.00 07/19/20 09:06 37.6 95 Nasal Cannula 2.00 07/19/20 08:53 127 07/19/20 08:31 37.9 121 18 164/89 (114) 91 Nasal Cannula 2.00 07/19/20 08:25 91 Nasal Cannula 2.00 07/19/20 08:20 177 18 177/98 96 Nasal Cannula 2.00 07/19/20 07:43 18 171/90 (117) 97 Nasal Cannula 2.00 07/19/20 06:37 104 22 160/88 97 Room Air I & O 07/20/20 07:00 Intake Total 3090 ml Output Total 4650 ml Balance -1560 ml Height & Weight Height: 5'8.00" Weight: 210lbs. oz. 95.592320vh; 34.37 BMI Method: General Appearance: Anxious, Chronically ill, Mild Distress, Obese HEENT: PERRL/EOMI, Normal ENT Inspection, Pharynx Normal, Other (dry MM) Neck: Full Range of Motion, Normal Inspection, Non Tender Respiratory: Chest Non Tender, Lungs Clear, Normal Breath Sounds, No Accessory Muscle Use, No Respiratory Distress Cardiovascular: No Edema, No Gallop, No JVD, No Murmur, Normal Peripheral Pulses, Tachycardia Capillary Refill: Less Than 3 Seconds Gastrointestinal: abnormal bowel sounds (RARE), distended (VERY FIRM), rebound (EUQIVOCAL), tenderness (MIDL RUQ TENDERNESS, MODERATE EPIGASTRIC AND LUQ TENDERNESS, MILD LEFT FLANK TENDERNESS); No hernia, No mass Extremity: Normal Capillary Refill, Normal Inspection, Normal Range of Motion, Non Tender, No Calf Tenderness, No Pedal Edema Neurologic/Psychiatric: Alert, Oriented x3, No Motor/Sensory Deficits, Normal Mood/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
[2020-07-20 04:15] LABS: BASOPHILS % (AUTO) 0 % (0-10); EOSINOPHILS % (AUTO) 0 % (0-10); HEMATOCRIT 41 % (40-54); HEMOGLOBIN 13.5 g/dL (13.3-17.7); LYMPHOCYTES # (AUTO) 0.6 10^3/uL (1.0-4.0); LYMPHOCYTES % (AUTO) 7 % (12-44); MEAN CORPUSCULAR HEMOGLOBIN 29 pg (25-34); MEAN CORPUSCULAR HGB CONC 33 g/dL (32-36); MEAN CORPUSCULAR VOLUME 88 fL (80-99); MONOCYTES # (AUTO) 0.4 10^3/uL (0.0-1.0); MONOCYTES % (AUTO) 5 % (0-12); NEUTROPHILS # (AUTO) 8.4 10^3/uL (1.8-7.8); NEUTROPHILS % (AUTO) 88 % (42-75); PLATELET COUNT 151 10^3/uL (130-400); WHITE BLOOD COUNT 9.6 10^3/uL (4.3-11.0)
[2020-07-20 04:27] LABS: ALANINE AMINOTRANSFERASE 18 U/L (0-55); ALBUMIN 3.4 GM/DL (3.2-4.5); ALKALINE PHOSPHATASE 55 U/L (40-136); BILIRUBIN,TOTAL 0.4 MG/DL (0.1-1.0); BUN/CREATININE RATIO 8; CALCIUM 9.5 MG/DL (8.5-10.1); CARBON DIOXIDE 14 MMOL/L (21-32); CHLORIDE 113 MMOL/L (98-107); CREATININE SERUM 0.62 MG/DL (0.60-1.30); GFR ESTIMATED > 60; GLUCOSE 211 MG/DL (70-105); PHOSPHORUS 1.1 MG/DL (2.3-4.7); POTASSIUM 3.8 MMOL/L (3.6-5.0); SODIUM 136 MMOL/L (135-145); TOTAL PROTEIN 6.4 GM/DL (6.4-8.2); TRIGLYCERIDES 351 MG/DL (<150)
[2020-07-20] MEDS: NS IV 1000 ML 1,000 ML IV SCH ×2 (05:08→12:54)
[2020-07-20] MEDS: MAGNESIUM 1 GM/100 ML IVPB 100 ML IV SCH ×3 (05:08→06:52)
[2020-07-20] MEDS: KCL 20 MEQ TAB (K-DUR) PO SCH (05:08)
[2020-07-20] MEDS: morphine INJ 10 MG/ML 1ML (SYR OR VIAL) IV PRN (05:41)
[2020-07-20] MEDS ORDERED: POTASSIUM PHOSPHATE INJ 30 MM in NS (IVPB) 250 ML IV ONE (06:00)
[2020-07-20 06:21] LABS: AMYLASE 565 U/L (25-125); LIPASE 660 U/L (8-78)
[2020-07-20] MEDS: PIPERACILLIN/TAZOBACTAM (BULK) 4.5 GM in NS (IVPB) 100 ML IV SCH ×3 (06:52→23:05)
--- NOTE | 2020-07-20 07:12 | Diagnostic Imaging Report ---
EXAMINATION: Chest 1 view HISTORY: Shortness of breath COMPARISON: None available. FINDINGS: Airspace opacity in the right base is noted. No pleural effusion or pneumothorax. Lung volumes are small. Heart size is normal. IMPRESSION: 1. Mild airspace opacity in the right base may represent atelectasis versus pneumonia. Dictated by: Dictated on workstation # [id number]
[2020-07-20] MEDS: PANTOPRAZOLE 40 MG (PROTONIX) VIAL IV SCH (08:30)
[2020-07-20] MEDS: ENOXAPARIN 40 MG/0.4 ML (LOVENOX) SYR SC SCH (08:30)
[2020-07-20 09:23] LABS: BUN/CREATININE RATIO 8; CALCIUM 9.1 MG/DL (8.5-10.1); CARBON DIOXIDE 14 MMOL/L (21-32); CHLORIDE 112 MMOL/L (98-107); CREATININE SERUM 0.64 MG/DL (0.60-1.30); GFR ESTIMATED > 60; GLUCOSE 250 MG/DL (70-105); POTASSIUM 3.9 MMOL/L (3.6-5.0); SODIUM 136 MMOL/L (135-145)
--- NOTE | 2020-07-20 10:57 | Progress Note ---
MITCHELL KIRK MED STUDENT 07/20/20 1057: Subjective Subjective/Events-last exam 45 yo M presents with acute pancreatitis. pt was awake talking on the phone. pt stated that his pain is currently rated as a 1 out of 10. pt described the pain as sharp. pt stated that the pain meds make the pain better and that nothing seems to make the pain worse. there was epigastric and LLQ tenderness to palpation. Review of Systems General: No Chills, No Fatigue Pulmonary: No Dyspnea, No Cough Cardiovascular: No: Chest Pain, Palpitations Gastrointestinal: Abdominal Pain; No: Nausea, Vomiting, Diarrhea, Constipation Genitourinary: No Dysuria, No Incontinence Focused Exam Lactate Level 07/19/20 16:32: Lactic Acid Level 1.15 Respiratory: Chest Non Tender, Lungs Clear, Normal Breath Sounds, No Accessory Muscle Use, No Respiratory Distress Cardiovascular: Regular Rate, Rhythm, No Edema, No Murmur, Normal Peripheral Pulses Peripheral Pulses: 2+ Carotid (R), 2+ Carotid (L), 2+ Dorsalis Pedis (R), 2+ Left Dors-Pedis (L), 2+ Radial Pulses (R), 2+ Radial Pulses (L) Skin: normal color, warm/dry; No diaphoresis Objective Exam Last Set of Vital Signs Vital Signs Date Time Temp Pulse Resp B/P (MAP) Pulse Ox O2 Delivery O2 Flow Rate FiO2 07/20/20 09:00 19 143/90 (107) 95 Room Air 07/20/20 08:30 37.1 07/20/20 06:00 115 07/19/20 20:15 Capillary Refill : Less Than 3 Seconds I&O Intake and Output 07/20/20 00:00 Intake Total 4920 ml Output Total 3750 ml Balance 1170 ml Intake Oral 500 ml IV Total 4420 ml Output Urine Total 3750 ml Daily Weight Change No No General: Alert, Oriented X3, No Acute Distress Neck: +2 Carotid Pulse No Bruit Heart: Regular Rate, No Murmurs Abdomen: Soft, Other (epigastric and LLQ tenderness) Extremities: No Cyanosis, Normal Pulses Results/Procedures Lab Laboratory Tests 07/19/20 16:32: White Blood Count 19.5H, Red Blood Count 5.02, Hemoglobin 16.1#, Hematocrit 45, Mean Corpuscular Volume 89, Mean Corpuscular Hemoglobin 32, Mean Corpuscular Hemoglobin Concent 36, Red Cell Distribution Width 14.6H, Platelet Count 342, Mean Platelet Volume 11.1, Immature Granulocyte % (Auto) 1, Neutrophils (%) (Auto) 87H, Lymphocytes (%) (Auto) 7L, Monocytes (%) (Auto) 5, Eosinophils (%) (Auto) 0, Basophils (%) (Auto) 0, Neutrophils # (Auto) 16.9H, Lymphocytes # (Auto) 1.4, Monocytes # (Auto) 0.9, Eosinophils # (Auto) 0.0, Basophils # (Auto) 0.1, Immature Granulocyte # (Auto) 0.2H, Sodium Level 136, Potassium Level 4.5, Chloride Level 112H, Carbon Dioxide Level < 5*L, Anion Gap 19H, Blood Urea Nitrogen 4L, Creatinine 0.78, Estimat Glomerular Filtration Rate > 60, BUN/Creatinine Ratio 5, Glucose Level 230H, Lactic Acid Level 1.15, Calcium Level 9.3, Corrected Calcium 9.3, Phosphorus Level 1.9L, Magnesium Level 1.6, Total Bilirubin 0.3, Aspartate Amino Transf (AST/SGOT) 20, Alanine Aminotransferase (ALT/SGPT) 25, Alkaline Phosphatase 61, Total Protein 7.3, Albumin 4.0, Triglycerides Level 1096H, Beta-Hydroxybutyrate (Chem panel) 4.73H 07/19/20 18:02: Urine Color YELLOW, Urine Clarity CLEAR, Urine pH 5.0, Urine Specific [place] >=1.030, Urine Protein 1+H, Urine Glucose (UA) 3+H, Urine Ketones 3+H, Urine Nitrite NEGATIVE, Urine Bilirubin 1+H, Urine Urobilinogen 0.2, Urine Leukocyte Esterase NEGATIVE, Urine RBC (Auto) 2+H, Urine RBC 5-10H, Urine WBC NONE, Urine Squamous Epithelial Cells 0-2, Urine Crystals NONE, Urine Bacteria TRACE, Urine Casts NONE, Urine Mucus SMALLH, Urine Culture Indicated NO 07/19/20 18:29: Glucometer 225H 07/19/20 19:30: Glucometer 256H 07/19/20 21:00: Glucometer 200H 07/19/20 21:06: Sodium Level 137, Potassium Level 4.3, Chloride Level 115H, Carbon Dioxide Level 9*L, Anion Gap 13, Blood Urea Nitrogen 4L, Creatinine 0.64, Estimat Glomerular Filtration Rate > 60, BUN/Creatinine Ratio 6, Glucose Level 226H, Calcium Level 9.3 07/19/20 22:25: Glucometer 203H 07/19/20 23:38: Glucometer 253H 07/20/20 00:34: Glucometer 242H 07/20/20 01:35: Glucometer 222H 07/20/20 02:37: Glucometer 238H 07/20/20 03:36: Glucometer 196H 07/20/20 03:48: White Blood Count 9.6, Red Blood Count 4.65, Hemoglobin 13.5, Hematocrit 41, Mean Corpuscular Volume 88, Mean Corpuscular Hemoglobin 29, Mean Corpuscular Hemoglobin Concent 33, Red Cell Distribution Width 14.4, Platelet Count 151, Mean Platelet Volume 11.0, Immature Granulocyte % (Auto) 1, Neutrophils (%) (Auto) 88H, Lymphocytes (%) (Auto) 7L, Monocytes (%) (Auto) 5, Eosinophils (%) (Auto) 0, Basophils (%) (Auto) 0, Neutrophils # (Auto) 8.4H, Lymphocytes # (Auto) 0.6L, Monocytes # (Auto) 0.4, Eosinophils # (Auto) 0.0, Basophils # (Auto) 0.0, Immature Granulocyte # (Auto) 0.1, Sodium Level 136, Potassium Level 3.8, Chloride Level 113H, Carbon Dioxide Level 14L, Anion Gap 9, Blood Urea Nitrogen 5L, Creatinine 0.62, Estimat Glomerular Filtration Rate > 60, BUN/Creatinine Ratio 8, Glucose Level 211H, Calcium Level 9.5, Corrected Calcium 10.0, Phosphorus Level 1.1L, Magnesium Level 1.6, Total Bilirubin 0.4, Aspartate Amino Transf (AST/SGOT) 18, Alanine Aminotransferase (ALT/SGPT) 18, Alkaline Phosphatase 55, Total Protein 6.4, Albumin 3.4, Triglycerides Level 351H, Amylase Level 565H, Lipase 660H 07/20/20 04:38: Glucometer 192H 07/20/20 05:33: Glucometer 219H 07/20/20 06:56: Glucometer 236H 07/20/20 08:27: Glucometer 208H 07/20/20 08:45: Sodium Level 136, Potassium Level 3.9, Chloride Level 112H, Carbon Dioxide Level 14L, Anion Gap 10, Blood Urea Nitrogen 5L, Creatinine 0.64, Estimat Glomerular Filtration Rate > 60, BUN/Creatinine Ratio 8, Glucose Level 250H, Calcium Level 9.1 07/20/20 09:47: Glucometer 239H 07/20/20 10:33: Glucometer 202H Microbiology 07/19/20 MRSA Screen - Final, Complete MRSA not isolated Radiology Date of Exam:07/19/20 CT ABD/PELVIS WO(KIDNEY STONE) PROCEDURE: CT urinary tract, rule out kidney stone. TECHNIQUE: Multiple contiguous axial images were obtained through the abdomen and pelvis without the use of intravenous contrast. Auto Exposure Controls were utilized during the CT exam to meet ALARA standards for radiation dose reduction. INDICATION: Diffuse abdominal pain. COMPARISON: 10/21/2011. DISCUSSION: Atelectasis or scarring noted within the lung bases. Normal heart size. No pleural or pericardial fluid. Fatty hepatomegaly is present. The gallbladder is unremarkable. Marked inflammatory changes are noted along the entirety of the pancreas suggesting acute pancreatitis. No abscess or pseudocyst formation identified. The stomach, spleen, and adrenal glands are unremarkable. No renal stone or hydronephrosis. No obstruction, pneumatosis, or pneumoperitoneum. The prostate and urinary bladder are unremarkable. The appendix is normal. No ascites or pathologically enlarged lymph nodes identified. No acute osseous abnormality identified. Advanced degenerative disc disease noted at L5-S1. IMPRESSION: 1. Inflammatory changes noted along the pancreas as described, consistent with acute pancreatitis. 2. Agree with preliminary report. Dictated on workstation # [id number] Dict: 07/19/20 0647 Trans: 07/19/20 0651 [facility] [id number] Interpreted by: MARAL GUTIERREZ MD Electronically signed by: Assessment/Plan Assessment/Plan Assessment & Plan 1 acute pancreatitis continue NPO status and IVF 2 uncontrolled diabetes mellitus continue glyburide, metformin continue IV insulin 3 hyperlipidemia continue atorvastatin 4 hypertension continue accupril 5 DVT prophylaxis continue lovenox injections Clinical Quality Measures DVT/VTE Risk/Contraindication: Risk Factor Score Per Nursin RFS Level Per Nursing on Admit: 3=High ZULEIMA ANAYA MD 07/20/20 5435: Subjective Subjective/Events-last exam Patient states that he is feeling much better and would like to eat and is thirsty. Still on insulin gtts at 14/hr. Gap is improving. No BM since monday. Review of Systems General: No Chills, No Fatigue Pulmonary: No Dyspnea, No Cough Cardiovascular: No: Chest Pain, Palpitations Gastrointestinal: Abdominal Pain; No: Nausea, Vomiting, Diarrhea, Constipation Neurological: No: Weakness, Numbness, Incoordination Objective Exam General: Alert, Oriented X3, No Acute Distress Lungs: Clear to Auscultation, Normal Air Movement Heart: Regular Rate, No Murmurs Abdomen: Normal Bowel Sounds, Soft, Other (epigastric and LLQ tenderness) Extremities: No Edema, No Tenderness/Swelling Skin: No Rashes, No Breakdown Neuro: Normal Speech, Strength at 5/5 X4 Ext, Sensation Intact, Cranial Nerves 3-12 NL Psych/Mental Status: Mental Status NL, Mood NL Assessment/Plan Assessment/Plan (1) DKA, type 2 Status: Acute Assessment & Plan: 07/20: Continue Insulin gtts until CO2 improves, will start 1/2 long acting insulin tonight and hope to get patient off drip in the AM Qualifiers: Qualified Codes: E11.10 - Type 2 diabetes mellitus with ketoacidosis without coma (2) Acute pancreatitis Status: Acute Assessment & Plan: 07/20: Likely 2/2 to elevated TG, Gallbladder normal on US today, Will start diet as pain is improved, will switch to PO pain medication, d/c IV morphine, start bowel medications Qualifiers: Qualified Codes: K85.90 - Acute pancreatitis without necrosis or infection, unspecified (3) Uncontrolled insulin dependent diabetes mellitus Status: Chronic (4) High triglycerides Status: Chronic (5) Hepatic steatosis Status: Chronic Assessment & Plan: 07/20: Seen on US Supervisory-Addendum Brief Supervisory Addendum Verification and Attestation of Medical Student E/M Service A medical student performed and documented this service in my presence. I reviewed and verified all information documented by the medical student and made modifications to such information, when appropriate. I personally performed the physical exam and medical decision making. Zuleima Anaya, Jul 20, 2020,17:36 MITCHELL KIRK MED STUDENT Jul 20, 2020 10:57 ZULEIMA ANAYA MD Jul 20, 2020 17:36
--- NOTE | 2020-07-20 11:55 | Diagnostic Imaging Report ---
PROCEDURE: US Gallbladder. TECHNIQUE: Multiple real-time grayscale images were obtained over the right upper quadrant in various projections. INDICATION: Pancreatitis. Evaluate for gallstones. COMPARISON: CT abdomen and pelvis performed on 07/19/2020. FINDINGS: Liver: There is diffuse increased echogenicity of the hepatic parenchyma. No focal lesion is seen. Appropriate hepatopetal flow is demonstrated in the main portal vein. Gallbladder: Normal. No stones or gallbladder wall thickening. No pericholecystic fluid. Negative sonographic Addison's sign. Biliary Tree: No intrahepatic or extrahepatic bile duct dilation is identified. The common duct is not well seen. Pancreas: Obscured by overlying bowel gas. Right kidney: Normal parenchymal echotexture and thickness. No hydronephrosis, stone or mass. Other: The aorta and IVC are not well seen, obscured by overlying bowel gas. No abdominal free fluid is appreciated. IMPRESSION: Evaluation is limited by overlying bowel gas, with obscuration of the pancreas. Echogenic liver, likely reflecting hepatic steatosis, or other hepatocellular disease. No cholelithiasis is appreciated. The common bile duct is not well seen. Dictated by: Dictated on workstation # [id number]
[2020-07-20 12:18] LABS: BUN/CREATININE RATIO 8; CALCIUM 9.4 MG/DL (8.5-10.1); CARBON DIOXIDE 17 MMOL/L (21-32); CHLORIDE 113 MMOL/L (98-107); CREATININE SERUM 0.59 MG/DL (0.60-1.30); GFR ESTIMATED > 60; GLUCOSE 153 MG/DL (70-105); PHOSPHORUS 1.3 MG/DL (2.3-4.7); POTASSIUM 3.6 MMOL/L (3.6-5.0); SODIUM 138 MMOL/L (135-145)
[2020-07-20] MEDS: SENNA W/DOCUSATE (SENOKOT S) TABLET PO SCH ×2 (12:53→20:57)
--- NOTE | 2020-07-20 12:58 | Progress Note - Surgery ---
XIOMARA CAM MED STUDENT 07/20/20 1258: Subjective Date Seen by a Provider: Jul 20, 2020 Time Seen by a Provider: 09:55 Subjective/Events-last exam Juventino states his pain has decreased, now 2/10. Says his pain is located at the upper abdomen and left side, and that it slightly worsens with pressure. He denies fever, chills, nausea, vomiting, chest pain, SOB, abdominal pain, and diarrhea. Focused Exam Lactate Level 07/19/20 16:32: Lactic Acid Level 1.15 Objective Exam Vital Signs Date Time Temp Pulse Resp B/P (MAP) Pulse Ox O2 Delivery O2 Flow Rate FiO2 07/20/20 12:00 138/83 (101) 97 Room Air 07/20/20 11:00 132/83 (99) 95 Room Air 07/20/20 10:00 157/85 (109) 96 Room Air 07/20/20 09:00 19 143/90 (107) 95 Room Air 07/20/20 08:30 37.1 07/20/20 08:00 Room Air 07/20/20 08:00 27 134/69 (90) 97 Room Air 07/20/20 07:00 21 136/87 (103) 94 Room Air 07/20/20 06:00 115 21 132/80 (97) 95 Room Air 07/20/20 05:44 116 07/20/20 05:00 107 15 136/72 (93) 94 Room Air 07/20/20 04:00 109 18 158/91 (113) 96 Room Air 07/20/20 03:59 Room Air 07/20/20 03:35 36.8 07/20/20 03:00 109 20 140/87 (104) 95 Room Air 07/20/20 02:00 112 31 161/86 (111) 94 Room Air 07/20/20 01:00 112 07/20/20 01:00 112 15 162/92 (115) 96 Room Air 07/20/20 00:00 114 22 151/85 (107) 94 Room Air 07/20/20 00:00 Room Air 07/19/20 23:39 36.8 07/19/20 23:00 116 22 159/72 (101) 96 Room Air 07/19/20 22:00 121 25 161/90 (113) 94 Room Air 07/19/20 21:10 118 29 177/99 (125) 95 Room Air 07/19/20 20:15 37.1 123 20 159/102 (121) 96 Room Air 07/19/20 20:00 36.9 07/19/20 20:00 Room Air 07/19/20 19:00 116 07/19/20 19:00 116 30 175/96 (122) 96 Room Air 07/19/20 18:30 36.6 07/19/20 18:00 146 19 160/91 (114) 93 Nasal Cannula 2.00 07/19/20 17:00 130 29 95 Nasal Cannula 2.00 07/19/20 16:00 38.0 07/19/20 16:00 Nasal Cannula 2.00 07/19/20 16:00 128 11 168/86 (113) 92 Nasal Cannula 2.00 07/19/20 15:56 Nasal Cannula 2.00 07/19/20 15:00 129 24 153/93 (113) 94 Nasal Cannula 2.00 07/19/20 14:00 128 27 145/89 (107) 94 Nasal Cannula 2.00 07/19/20 13:25 37.5 07/19/20 13:00 126 27 147/99 (115) 93 Nasal Cannula 2.00 07/19/20 12:52 129 I & O 07/20/20 07:00 Intake Total 4290 ml Output Total 5300 ml Balance -1010 ml Capillary Refill : Less Than 3 Seconds General Appearance: WD/WN, Obese HEENT: PERRL/EOMI, Normal ENT Inspection, Pharynx Normal, Other (dry MM) Neck: Full Range of Motion, Normal Inspection, Non Tender Respiratory: Chest Non Tender, Lungs Clear, Normal Breath Sounds, No Accessory Muscle Use, No Respiratory Distress Cardiovascular: Regular Rate, Rhythm, No Edema, No Murmur, Normal Peripheral Pulses Peripheral Pulses: 2+ Carotid (R), 2+ Carotid (L), 2+ Dorsalis Pedis (R), 2+ Left Dors-Pedis (L), 2+ Radial Pulses (R), 2+ Radial Pulses (L) Gastrointestinal: No guarding, No rebound; tenderness (Mild epigastric, suprapubic, and left sided abdominal tenderness. No RLQ or RUQ tenderness. ); No hernia, No mass Extremity: Normal Capillary Refill, Normal Inspection, Normal Range of Motion, Non Tender, No Calf Tenderness, No Pedal Edema Neurologic/Psychiatric: Alert, Oriented x3, Normal Mood/Affect Skin: Normal Color, Warm/Dry Lymphatic: No Adenopathy Results Lab Laboratory Tests 07/19/20 16:32: White Blood Count 19.5H, Red Blood Count 5.02, Hemoglobin 16.1#, Hematocrit 45, Mean Corpuscular Volume 89, Mean Corpuscular Hemoglobin 32, Mean Corpuscular Hemoglobin Concent 36, Red Cell Distribution Width 14.6H, Platelet Count 342, Mean Platelet Volume 11.1, Immature Granulocyte % (Auto) 1, Neutrophils (%) (Auto) 87H, Lymphocytes (%) (Auto) 7L, Monocytes (%) (Auto) 5, Eosinophils (%) (Auto) 0, Basophils (%) (Auto) 0, Neutrophils # (Auto) 16.9H, Lymphocytes # (Auto) 1.4, Monocytes # (Auto) 0.9, Eosinophils # (Auto) 0.0, Basophils # (Auto) 0.1, Immature Granulocyte # (Auto) 0.2H, Sodium Level 136, Potassium Level 4.5, Chloride Level 112H, Carbon Dioxide Level < 5*L, Anion Gap 19H, Blood Urea Nitrogen 4L, Creatinine 0.78, Estimat Glomerular Filtration Rate > 60, BUN/Creatinine Ratio 5, Glucose Level 230H, Lactic Acid Level 1.15, Calcium Level 9.3, Corrected Calcium 9.3, Phosphorus Level 1.9L, Magnesium Level 1.6, Total Bilirubin 0.3, Aspartate Amino Transf (AST/SGOT) 20, Alanine Aminotransferase (ALT/SGPT) 25, Alkaline Phosphatase 61, Total Protein 7.3, Albumin 4.0, Triglycerides Level 1096H, Beta-Hydroxybutyrate (Chem panel) 4.73H 07/19/20 18:02: Urine Color YELLOW, Urine Clarity CLEAR, Urine pH 5.0, Urine Specific [place] >=1.030, Urine Protein 1+H, Urine Glucose (UA) 3+H, Urine Ketones 3+H, Urine Nitrite NEGATIVE, Urine Bilirubin 1+H, Urine Urobilinogen 0.2, Urine Leukocyte Esterase NEGATIVE, Urine RBC (Auto) 2+H, Urine RBC 5-10H, Urine WBC NONE, Urine Squamous Epithelial Cells 0-2, Urine Crystals NONE, Urine Bacteria TRACE, Urine Casts NONE, Urine Mucus SMALLH, Urine Culture Indicated NO 07/19/20 18:29: Glucometer 225H 07/19/20 19:30: Glucometer 256H 07/19/20 21:00: Glucometer 200H 07/19/20 21:06: Sodium Level 137, Potassium Level 4.3, Chloride Level 115H, Carbon Dioxide Level 9*L, Anion Gap 13, Blood Urea Nitrogen 4L, Creatinine 0.64, Estimat Glomerular Filtration Rate > 60, BUN/Creatinine Ratio 6, Glucose Level 226H, Calcium Level 9.3 07/19/20 22:25: Glucometer 203H 07/19/20 23:38: Glucometer 253H 07/20/20 00:34: Glucometer 242H 07/20/20 01:35: Glucometer 222H 07/20/20 02:37: Glucometer 238H 07/20/20 03:36: Glucometer 196H 07/20/20 03:48: White Blood Count 9.6, Red Blood Count 4.65, Hemoglobin 13.5, Hematocrit 41, Mean Corpuscular Volume 88, Mean Corpuscular Hemoglobin 29, Mean Corpuscular He moglobin Concent 33, Red Cell Distribution Width 14.4, Platelet Count 151, Mean Platelet Volume 11.0, Immature Granulocyte % (Auto) 1, Neutrophils (%) (Auto) 88H, Lymphocytes (%) (Auto) 7L, Monocytes (%) (Auto) 5, Eosinophils (%) (Auto) 0, Basophils (%) (Auto) 0, Neutrophils # (Auto) 8.4H, Lymphocytes # (Auto) 0.6L, Monocytes # (Auto) 0.4, Eosinophils # (Auto) 0.0, Basophils # (Auto) 0.0, Immature Granulocyte # (Auto) 0.1, Sodium Level 136, Potassium Level 3.8, Chloride Level 113H, Carbon Dioxide Level 14L, Anion Gap 9, Blood Urea Nitrogen 5L, Creatinine 0.62, Estimat Glomerular Filtration Rate > 60, BUN/Creatinine Ratio 8, Glucose Level 211H, Calcium Level 9.5, Corrected Calcium 10.0, Phosphorus Level 1.1L, Magnesium Level 1.6, Total Bilirubin 0.4, Aspartate Amino Transf (AST/SGOT) 18, Alanine Aminotransferase (ALT/SGPT) 18, Alkaline Phosphatase 55, Total Protein 6.4, Albumin 3.4, Triglycerides Level 351H, Amylase Level 565H, Lipase 660H 07/20/20 04:38: Glucometer 192H 07/20/20 05:33: Glucometer 219H 07/20/20 06:56: Glucometer 236H 07/20/20 08:27: Glucometer 208H 07/20/20 08:45: Sodium Level 136, Potassium Level 3.9, Chloride Level 112H, Carbon Dioxide Level 14L, Anion Gap 10, Blood Urea Nitrogen 5L, Creatinine 0.64, Estimat Glomerular Filtration Rate > 60, BUN/Creatinine Ratio 8, Glucose Level 250H, Calcium Level 9.1 07/20/20 09:47: Glucometer 239H 07/20/20 10:33: Glucometer 202H 07/20/20 11:29: Glucometer 158H 07/20/20 11:47: Sodium Level 138, Potassium Level 3.6, Chloride Level 113H, Carbon Dioxide Level 17L, Anion Gap 8, Blood Urea Nitrogen 5L, Creatinine 0.59L, Estimat Glomerular F iltration Rate > 60, BUN/Creatinine Ratio 8, Glucose Level 153H, Calcium Level 9.4, Phosphorus Level 1.3L 07/20/20 12:20: Glucometer 185H Microbiology 07/19/20 MRSA Screen - Final, Complete MRSA not isolated Assessment/Plan Assessment/Plan Assessment/Plan Pancreatitis Hypertriglyceridemia Cholesterolemia Dehydration Hyponatremia Hyperglycemia Pt needs IV fluids, pain control, anti-emetics and monitor labs. US was negative for stones, sludge. Pancreatitis likely caused by triglycerides Medical management, nothing surgical at this point. Clinical Quality Measures DVT/VTE Risk/Contraindication: Risk Factor Score Per Nursin RFS Level Per Nursing on Admit: 3=High STEVENSNO CASTILLO DO 07/20/202020: Subjective Subjective/Events-last exam Patient states he is feeling better than yesterday. He still has pain in the epigastric area currently he rates it at a 2 out of 10. He states if it is touched though it does increase. He is currently n.p.o. He denies any fever sweats chills shortness of breath or chest pain at this time. Objective Exam General Appearance: WD/WN, Obese HEENT: PERRL/EOMI, Normal ENT Inspection, Other (dry MM) Neck: Full Range of Motion, Normal Inspection, Non Tender Respiratory: Chest Non Tender, No Accessory Muscle Use, No Respiratory Distress Cardiovascular: Regular Rate, Rhythm, No Edema Gastrointestinal: soft; No guarding, No rebound; tenderness (Epigastric ab dominal area no guarding or rebounding); No hernia, No mass Extremity: Normal Inspection, Non Tender, No Calf Tenderness Neurologic/Psychiatric: Alert, Oriented x3, Normal Mood/Affect Skin: Normal Color, Warm/Dry Lymphatic: No Adenopathy Assessment/Plan Assessment/Plan Assessment/Plan Pancreatitis Hypertriglyceridemia Cholesterolemia Dehydration Hyponatremia Hyperglycemia Pt needs IV fluids, pain control, anti-emetics and monitor labs. US was negative for stones, sludge. Pancreatitis likely caused by triglycerides Medical management, nothing surgical at this point. We will continue n.p.o. and if continues to feel better start liquids tomorrow Supervisory-Addendum Brief Verification & Attestation Participated in pt care: history, MDM, physical Personally performed: exam, history, MDM, supervision of care Care discussed with: Medical Student Procedures: n/a Results interpretation: Verified all documentation Verification and Attestation of Medical Student E/M Service A medical student performed and documented this service in my presence. I reviewed and verified all information documented by the medical student and made modifications to such information, when appropriate. I personally performed the physical exam and medical decision making. Stevenson Castillo, Jul 20, 2020,20:21 Verification and Attestation of Medical Student E/M Service A medical student performed and documented this service in my presence. I reviewed and verified all information documented by the medical student and made modifications to such information, when appropriate. I personally performed the physical exam and medical decision making. Stevenson Castillo, Jul 20, 2020,20:21 XIOMARA CAM MED STUDENT Jul 20, 2020 12:58 STEVENSON CASTILLO DO Jul 20, 2020 20:21
[2020-07-20] MEDS ORDERED: IBUP-2473 PO (13:00)
[2020-07-20] MEDS ORDERED: ACET325T38 PO (13:00)
[2020-07-20] MEDS ORDERED: INSU100I29 SQ (13:16)
[2020-07-20] MEDS ORDERED: INSU100I23 SQ (13:16)
[2020-07-20] MEDS ORDERED: CANA300T PO (13:16)
[2020-07-20] MEDS ORDERED: ATOR80TA76 PO (13:16)
[2020-07-20] MEDS ORDERED: OMEG1CAP PO (13:16)
[2020-07-20] MEDS ORDERED: PIOG30TA71 PO (13:16)
[2020-07-20] MEDS ORDERED: SITA1TAB6 PO (13:16)
[2020-07-20] MEDS ORDERED: FENO160T12 PO (13:16)
[2020-07-20] MEDS ORDERED: QUIN20TA16 PO (14:06)
--- NOTE | 2020-07-20 14:08 | NUR ---
RD ASSESSMENT PMHx: hypercholesterolemia; HTN; DM PT INTERACTION: Pt was awake and pleasant during nutrition assessment. Pt states current appetite is fair. Note pt currently NPO x1d, per chart review. Pt states following a low-CHO diet at home, and has no issues with chewing/swallowing food. Pt states no recent issues with nausea, vomiting, constipation, or diarrhea, and that his last BM was 07/19. Note pt not currently on bowel regimen per chart review. Pt states no recent wt changes. Note unable to determine recent wt hx, per chart review. Pt states currently DM management is "kind of under control." Note unable to determine recent HbA1c, per chart review. ABNORMAL NUTRITION-RELATED LAB VALUES LOW: BUN 5; HIGH: Cl 112; glu 250 Est. kcal needs: 1525 kcal | 15 kcal/kg Est. Pro needs: 81 g Pro | 0.8 g Pro/kg PES STATEMENT: Inadequate oral intake (NI-2.1) related to NPO status | fair appetite as evidenced by pt interview | chart review INTERVENTION: Note pt currently NPO x1d. Would recommend diet advancement to consistent CHO diet, when medically able and as tolerated. Did not offer DM education at this time. Will attempt to offer prior to discharge. Will continue to follow and reassess as pt needs, intake, and status change. Monica Briscoe, MS, RD, LD
--- NOTE | 2020-07-20 14:23 | NUR ---
I SPOKE WITH THE PATIENT, CALLED HIS , AND CALLED [facility] TO HELP ME COMPLETE THIS MED REC. [facility] SENT ME A MED LIST AND IT IS ON FILE INVOKANA 300MG LAST FILLED 05/25/2020 #90/90DS PIOGLITAZONE 30MG LAST FILLED #90/90DS FENOFIBRATE 160MG LAST TAKEN 05/25/2020 #90/90DS ATORVASTATIN 80MG LAST FILLED 05/25/2020 #90/90DS ODNYG-8-XETV 1GM LAST FILLED 07/20/2020 #90/90DS HUMALOG KWIKPEN 100U/ML LAST FILLED 07/20/2020 #45 LEVEMIR FLEXTOUCH 100U/ML LAST FILLED 06/10/2020 #45 JANUMET XR 50-100MG LAST FILLED 07/20/2020 #180/90DS PATIENT STATES THAT THEY GET ACCUPRIL 20MG FROM [facility] IN [place] BUT I COULDN'T FIND ANY RECORD OF IT OTC: TYLENOL IBUPROFEN
[2020-07-20] MEDS: HYDROcodone/APAP 7.5 MG/325 MG (LORTAB, LORCET PLUS) TABLET PO PRN (15:40)
[2020-07-20 16:36] LABS: CHLORIDE 113 MMOL/L (98-107); POTASSIUM 3.5 MMOL/L (3.6-5.0); SODIUM 137 MMOL/L (135-145)
[2020-07-20 16:37] LABS: CALCIUM 9.2 MG/DL (8.5-10.1)
[2020-07-20 16:38] LABS: GLUCOSE 125 MG/DL (70-105)
[2020-07-20 16:39] LABS: CARBON DIOXIDE 16 MMOL/L (21-32)
[2020-07-20 16:42] LABS: CREATININE SERUM 0.55 MG/DL (0.60-1.30); GFR ESTIMATED > 60
[2020-07-20 16:43] LABS: BUN/CREATININE RATIO 9
--- NOTE | 2020-07-20 17:31 | NUR ---
THIS NURSE NOTIFIED DR JUNG OF PT LAB RESULTS. ORDER GIVEN FOR LEVEMIR TIMES ONE AND CARB CONTROLLED DIET. THIS NURSE CLARIFIED WITH DR JUNG PT WAS NPO PER DR BARBOSA. PT PAIN IS CONTROLLED AND US LOOKED GOOD SO PT MAY EAT. SEE ORDER HX. WILL CONTINUE TO MONITOR. Addendum: 07/20/20 at 1818 by NERISSA PAYTON RN PT IS TO STAY ON INSULIN DRIP AFTER LEVEMIR DOSE. WILL RE-EVALUATE AT NEXT LAB DRAW PER DR JUNG
[2020-07-20 20:52] LABS: CHLORIDE 110 MMOL/L (98-107); POTASSIUM 3.7 MMOL/L (3.6-5.0); SODIUM 135 MMOL/L (135-145)
[2020-07-20 20:53] LABS: CALCIUM 9.4 MG/DL (8.5-10.1)
[2020-07-20 20:54] LABS: GLUCOSE 187 MG/DL (70-105)
[2020-07-20 20:55] LABS: CARBON DIOXIDE 17 MMOL/L (21-32)
[2020-07-20 20:58] LABS: CREATININE SERUM 0.63 MG/DL (0.60-1.30); GFR ESTIMATED > 60
[2020-07-20 20:59] LABS: BUN/CREATININE RATIO 8
[2020-07-21] VITALS (16 sets, daily range): BP systolic 118–159; BP diastolic 69–118
[2020-07-21] MEDS: 1/2 NS IV SOLUTION 1,000 ML IV SCH ×4 (00:23→11:55)
[2020-07-21 00:42] LABS: CHLORIDE 112 MMOL/L (98-107); POTASSIUM 3.5 MMOL/L (3.6-5.0); SODIUM 138 MMOL/L (135-145)
[2020-07-21 00:43] LABS: CALCIUM 9.3 MG/DL (8.5-10.1)
[2020-07-21 00:44] LABS: GLUCOSE 109 MG/DL (70-105)
[2020-07-21 00:45] LABS: CARBON DIOXIDE 19 MMOL/L (21-32)
[2020-07-21] MEDS ORDERED: LABETALOL HCL 20 MG/4 ML VIAL IV PRN (00:45)
[2020-07-21 00:48] LABS: BUN/CREATININE RATIO 11; CREATININE SERUM 0.57 MG/DL (0.60-1.30); GFR ESTIMATED > 60
[2020-07-21] MEDS: POTASSIUM CL 10MEQ/50ML IVPB 50 ML IV SCH ×4 (01:05→07:36)
[2020-07-21] MEDS: NS IV 1000 ML 1,000 ML IV SCH ×3 (02:00→14:47)
[2020-07-21 03:28] LABS: BASOPHILS % (AUTO) 0 % (0-10); EOSINOPHILS # (AUTO) 0.1 10^3/uL (0.0-0.3); EOSINOPHILS % (AUTO) 1 % (0-10); HEMATOCRIT 33 % (40-54); HEMOGLOBIN 11.4 g/dL (13.3-17.7); LYMPHOCYTES # (AUTO) 0.6 10^3/uL (1.0-4.0); LYMPHOCYTES % (AUTO) 9 % (12-44); MEAN CORPUSCULAR HEMOGLOBIN 30 pg (25-34); MEAN CORPUSCULAR HGB CONC 34 g/dL (32-36); MEAN CORPUSCULAR VOLUME 87 fL (80-99); MEAN PLATELET VOLUME 11.1 fL (9.0-12.2); MONOCYTES # (AUTO) 0.2 10^3/uL (0.0-1.0); MONOCYTES % (AUTO) 3 % (0-12); NEUTROPHILS # (AUTO) 6.3 10^3/uL (1.8-7.8); NEUTROPHILS % (AUTO) 86 % (42-75); PLATELET COUNT 173 10^3/uL (130-400); WHITE BLOOD COUNT 7.3 10^3/uL (4.3-11.0)
[2020-07-21 03:44] LABS: CHLORIDE 112 MMOL/L (98-107); POTASSIUM 4.3 MMOL/L (3.6-5.0); SODIUM 138 MMOL/L (135-145)
[2020-07-21 03:45] LABS: CALCIUM 9.1 MG/DL (8.5-10.1)
[2020-07-21 03:46] LABS: GLUCOSE 122 MG/DL (70-105)
[2020-07-21 03:48] LABS: CARBON DIOXIDE 18 MMOL/L (21-32)
[2020-07-21 03:50] LABS: CREATININE SERUM 0.59 MG/DL (0.60-1.30); PHOSPHORUS 1.2 MG/DL (2.3-4.7)
[2020-07-21 03:51] LABS: BUN/CREATININE RATIO 10
[2020-07-21 03:52] LABS: MAGNESIUM 1.7 MG/DL (1.6-2.4)
--- NOTE | 2020-07-21 04:05 | Pulmonary Progress Note ---
GEGE SOLIS MED STUDENT 07/21/20 0405: Subjective Date Seen by a Provider: Jul 21, 2020 Subjective/Events-last exam Reports that he feels much better today. Mild epigastric pain to palpation. Review of Systems General: No Chills, No Night Sweats HEENT: No Sinus Congestion, No Sore Throat Pulmonary: No Dyspnea, No Cough Cardiovascular: No: Chest Pain, Palpitations, Edema, Lt Headedness Gastrointestinal: No: Nausea, Vomiting, Abdominal Pain, Diarrhea, Constipation Genitourinary: No Dysuria, No Frequency Sepsis Event Evaluation Height, Weight, BMI Height: 5'8.00" Weight: 210lbs. oz. 95.382544qz; 34.37 BMI Method: Focused Exam Lactate Level 07/19/20 16:32: Lactic Acid Level 1.15 Exam Exam Vital Signs Date Time Temp Pulse Resp B/P (MAP) Pulse Ox O2 Delivery O2 Flow Rate FiO2 07/21/20 03:00 100 27 123/76 (92) 93 Room Air 07/21/20 02:00 97 13 159/93 (115) 92 Room Air 07/21/20 01:00 105 14 149/85 (106) 95 Room Air 07/21/20 01:00 105 07/21/20 00:00 Room Air 07/21/20 00:00 92 22 150/100 (117) 94 Room Air 07/20/20 23:00 117 17 135/97 (110) Room Air 07/20/20 22:00 101 23 175/101 (125) 97 Room Air 07/20/20 21:00 108 25 158/100 (119) 96 Room Air 07/20/20 20:00 108 26 162/105 (124) 96 Room Air 07/20/20 20:00 36.8 07/20/20 20:00 Room Air 07/20/20 19:00 109 25 171/106 (127) 96 Room Air 07/20/20 19:00 109 07/20/20 18:00 100 29 152/103 (119) 97 Room Air 07/20/20 17:00 98 11 122/91 (101) 97 Room Air 07/20/20 16:00 Room Air 07/20/20 16:00 37.3 07/20/20 16:00 97 20 136/82 (100) 96 Room Air 07/20/20 15:00 96 18 129/78 (95) 96 Room Air 07/20/20 14:00 107 27 138/94 (109) 95 Room Air 07/20/20 13:00 107 27 138/94 (109) 95 Room Air 07/20/20 12:43 113 07/20/20 12:00 138/83 (101) 97 Room Air 07/20/20 12:00 Room Air 07/20/20 11:00 132/83 (99) 95 Room Air 07/20/20 10:00 157/85 (109) 96 Room Air 07/20/20 09:00 19 143/90 (107) 95 Room Air 07/20/20 08:30 37.1 07/20/20 08:00 Room Air 07/20/20 08:00 27 134/69 (90) 97 Room Air 07/20/20 07:00 21 136/87 (103) 94 Room Air 07/20/20 06:00 115 21 132/80 (97) 95 Room Air 07/20/20 05:44 116 07/20/20 05:00 107 15 136/72 (93) 94 Room Air I & O 07/21/20 07:00 Intake Total 3110 ml Output Total 4625 ml Balance -1515 ml Height & Weight Height: 5'8.00" Weight: 210lbs. oz. 95.857840zh; 34.37 BMI Method: General Appearance: No Apparent Distress, Obese HEENT: PERRL/EOMI; No Scleral Icterus (L), No Scleral Icterus (R) Neck: Full Range of Motion, Normal Inspection, Supple, Tender Lateral (attributes to posture while asleep) Respiratory: Chest Non Tender, Lungs Clear, Normal Breath Sounds, No Accessory Muscle Use, No Respiratory Distress Cardiovascular: Regular Rate, Rhythm, No Edema, No Gallop, No Murmur, Normal Peripheral Pulses Capillary Refill: Less Than 3 Seconds Peripheral Pulses: 2+ Dorsalis Pedis (R), 2+ Left Dors-Pedis (L), 2+ Radial Pulses (R), 2+ Radial Pulses (L) Gastrointestinal: normal bowel sounds, non tender, soft, no organomegaly, no pulsatile mass; No guarding; tenderness (Epigastric abdominal area no guarding or rebounding) Extremity: Normal Capillary Refill, Normal Inspection, Non Tender, No Calf Tenderness, No Pedal Edema Neurologic/Psychiatric: Alert, Oriented x3, Normal Mood/Affect Skin: Normal Color, Warm/Dry Lymphatic: No Adenopathy Results Lab Laboratory Tests 07/19/20 05:32 07/19/20 16:32 07/19/20 21:06 07/20/20 03:48 07/20/20 08:45 07/20/20 11:47 07/20/20 15:55 07/20/20 20:11 07/21/20 00:20 07/21/20 03:08 Assessment/Plan Assessment/Plan Acute DKA -DKA protocol -IVF On Dextrose/half NS, insulin. Latest Glucose 122, Anion gap 7, CO2 18 on BMP. Check B-hydroxybutarate. continue potassium, magnesium replacement Acute pancreatitis with hypertriglyceridemia -IVF -Insulin gtt General surgery consulted, US was negative for stones, sludge. Leukocytosis r/o sepsis waller cultures negative, WBC 7.3 -Zosyn Hypophosphatemia Phosphate 1.2 replace GILBERTO CHAPMAN DO 07/21/20 0615: Subjective Time Seen by a Provider: 06:12 Assessment/Plan Assessment/Plan Acute DKA -DKA protocol -Repeat beta hydroxybuterate and UA -IVF On Dextrose/half NS, insulin. Latest Glucose 122, Anion gap 7, CO2 18 on BMP. Check B-hydroxybutarate. continue potassium, magnesium replacement Acute pancreatitis with hypertriglyceridemia -IVF -Insulin gtt General surgery consulted, US was negative for stones, sludge. Leukocytosis r/o sepsis waller cultures negative, WBC 7.3 -Zosyn Hypophosphatemia Phosphate 1.2 replace GEGE SOLIS MED STUDENT Jul 21, 2020 04:05 GILBERTO CHAPMAN DO Jul 21, 2020 06:15
[2020-07-21 04:10] LABS: GFR ESTIMATED > 60
[2020-07-21] MEDS: D5 1/2 NS 1000 ML IV SOLUTION 1,000 ML IV SCH (06:07)
--- NOTE | 2020-07-21 07:22 | Diagnostic Imaging Report ---
INDICATION: Shortness of air. Follow-up. COMPARISON: 07/20/2020 FINDINGS: Single frontal view of the chest demonstrates normal heart size and pulmonary vascularity. The lungs show minimal airspace opacities within the left base projecting over the left heart. No large pleural effusion or pneumothorax is seen. The visualized osseous structures show no acute abnormalities. IMPRESSION: 1. Stable exam of the chest showing left basilar atelectasis and/or infiltrate. Dictated by: Dictated on workstation # [id number]
[2020-07-21] MEDS: KCL 20 MEQ TAB (K-DUR) PO SCH (07:36)
[2020-07-21] MEDS: MAGNESIUM 1 GM/100 ML IVPB 100 ML IV SCH (07:36)
[2020-07-21] MEDS: PIPERACILLIN/TAZOBACTAM (BULK) 4.5 GM in NS (IVPB) 100 ML IV SCH ×3 (07:55→23:07)
[2020-07-21] MEDS: ENOXAPARIN 40 MG/0.4 ML (LOVENOX) SYR SC SCH (07:55)
[2020-07-21] MEDS: lisINopril 20 MG (PRINIVIL) TABLET PO SCH (07:56)
[2020-07-21] MEDS: PANTOPRAZOLE 40 MG (PROTONIX) VIAL IV SCH (07:56)
[2020-07-21] MEDS: SENNA W/DOCUSATE (SENOKOT S) TABLET PO SCH ×2 (07:56→21:07)
[2020-07-21 08:26] LABS: BUN/CREATININE RATIO 8; CALCIUM 9.2 MG/DL (8.5-10.1); CARBON DIOXIDE 17 MMOL/L (21-32); CHLORIDE 108 MMOL/L (98-107); CREATININE SERUM 0.62 MG/DL (0.60-1.30); GFR ESTIMATED > 60; GLUCOSE 199 MG/DL (70-105); POTASSIUM 3.7 MMOL/L (3.6-5.0); SODIUM 136 MMOL/L (135-145)
--- NOTE | 2020-07-21 09:00 | Progress Note ---
YELENAMITCHELL MED STUDENT 07/21/20 0900: Subjective Subjective/Events-last exam pt was standing up in the room, says that he is tired of the bed. pt states that he is not having any epigastric pain today. pt stated that he had breakfast and has not had any associated pain with eating. pt denies nausea and vomiting. pt states that he is having some diarrhea. No tenderness to palpation noted. Review of Systems General: No Chills, No Fatigue Pulmonary: No Dyspnea, No Cough Cardiovascular: No: Chest Pain, Palpitations Gastrointestinal: Diarrhea; No: Nausea, Vomiting, Abdominal Pain, Constipation Genitourinary: No Dysuria, No Incontinence Focused Exam Lactate Level 07/19/20 16:32: Lactic Acid Level 1.15 Respiratory: Chest Non Tender, Lungs Clear, Normal Breath Sounds, No Accessory Muscle Use, No Respiratory Distress Cardiovascular: Regular Rate, Rhythm, No Edema, No Murmur, Normal Peripheral Pulses Peripheral Pulses: 2+ Carotid (R), 2+ Carotid (L), 2+ Radial Pulses (R), 2+ Radial Pulses (L) Skin: normal color, warm/dry; No diaphoresis Objective Exam Last Set of Vital Signs Vital Signs Date Time Temp Pulse Resp B/P (MAP) Pulse Ox O2 Delivery O2 Flow Rate FiO2 07/21/20 08:50 36.2 07/21/20 06:00 90 12 153/97 (115) 95 Room Air 07/19/20 20:15 Capillary Refill : Less Than 3 Seconds I&O Intake and Output 07/21/20 00:00 Intake Total 4080 ml Output Total 5675 ml Balance -1595 ml Intake Oral 350 ml IV Total 3730 ml Output Urine Total 5675 ml General: Alert, Oriented X3, Cooperative, No Acute Distress Neck: Supple Lungs: Clear to Auscultation Heart: Regular Rate, No Murmurs Abdomen: Normal Bowel Sounds, Soft, No Tenderness Extremities: No Edema, Normal Pulses Results/Procedures Lab Laboratory Tests 07/20/20 09:47: Glucometer 239H 07/20/20 10:33: Glucometer 202H 07/20/20 11:29: Glucometer 158H 07/20/20 11:47: Sodium Level 138, Potassium Level 3.6, Chloride Level 113H, Carbon Dioxide Level 17L, Anion Gap 8, Blood Urea Nitrogen 5L, Creatinine 0.59L, Estimat Glomerular Filtration Rate > 60, BUN/Creatinine Ratio 8, Glucose Level 153H, Calcium Level 9.4, Phosphorus Level 1.3L 07/20/20 12:20: Glucometer 185H 07/20/20 13:34: Glucometer 105 07/20/20 14:36: Glucometer 153H 07/20/20 15:34: Glucometer 133H 07/20/20 15:55: Sodium Level 137, Potassium Level 3.5L, Chloride Level 113H, Carbon Dioxide Level 16L, Anion Gap 8, Blood Urea Nitrogen 5L, Creatinine 0.55L, Estimat Glomerular Filtration Rate > 60, BUN/Creatinine Ratio 9, Glucose Level 125H, Calcium Level 9.2 07/20/20 16:35: Glucometer 116H 07/20/20 17:37: Glucometer 147H 07/20/20 18:26: Glucometer 185H 07/20/20 19:48: Glucometer 196H 07/20/20 20:11: Sodium Level 135, Potassium Level 3.7, Chloride Level 110H, Carbon Dioxide Level 17L, Anion Gap 8, Blood Urea Nitrogen 5L, Creatinine 0.63, Estimat Glomerular Filtration Rate > 60, BUN/Creatinine Ratio 8, Glucose Level 187H, Calcium Level 9.4 07/20/20 21:00: Glucometer 148H 07/20/20 22:04: Glucometer 125H 07/20/20 23:10: Glucometer 132H 07/21/20 00:16: Glucometer 147H 07/21/20 00:20: Sodium Level 138, Potassium Level 3.5L, Chloride Level 112H, Carbon Dioxide Level 19L, Anion Gap 7, Blood Urea Nitrogen 6L, Creatinine 0.57L, Estimat Glomerular Filtration Rate > 60, BUN/Creatinine Ratio 11, Glucose Level 109H, Calcium Level 9.3 07/21/20 01:04: Glucometer 90 07/21/20 02:11: Glucometer 101 07/21/20 03:08: White Blood Count 7.3, Red Blood Count 3.84L, Hemoglobin 11.4L, Hematocrit 33L, Mean Corpuscular Volume 87, Mean Corpuscular Hemoglobin 30, Mean Corpuscular Hemoglobin Concent 34, Red Cell Distribution Width 14.6H, Platelet Count 173, Mean Platelet Volume 11.1, Immature Granulocyte % (Auto) 1, Neutrophils (%) (Auto) 86H, Lymphocytes (%) (Auto) 9L, Monocytes (%) (Auto) 3, Eosinophils (%) (Auto) 1, Basophils (%) (Auto) 0, Neutrophils # (Auto) 6.3, Lymphocytes # (Auto) 0.6L, Monocytes # (Auto) 0.2, Eosinophils # (Auto) 0.1, Basophils # (Auto) 0.0, Immature Granulocyte # (Auto) 0.0, Sodium Level 138, Potassium Level 4.3, Chloride Level 112H, Carbon Dioxide Level 18L, Anion Gap 8, Blood Urea Nitrogen 6L, Creatinine 0.59L, Estimat Glomerular Filtration Rate > 60, BUN/Creatinine Ratio 10, Glucose Level 122H, Calcium Level 9.1, Phosphorus Level 1.2L, Magnesium Level 1.7, Beta-Hydroxybutyrate (Chem panel) 1.53H 07/21/20 03:35: Glucometer 131H 07/21/20 05:01: Glucometer 178H 07/21/20 06:40: Glucometer 177H 07/21/20 07:55: Sodium Level 136, Potassium Level 3.7, Chloride Level 108H, Carbon Dioxide Level 17L, Anion Gap 11, Blood Urea Nitrogen 5L, Creatinine 0.62, Estimat Glomerular Filtration Rate > 60, BUN/Creatinine Ratio 8, Glucose Level 199H, Calcium Level 9.2 07/21/20 07:58: Glucometer 202H Microbiology 07/19/20 Blood Culture - Preliminary, Resulted No growth 07/19/20 MRSA Screen - Final, Complete MRSA not isolated Radiology Date of Exam:07/19/20 CT ABD/PELVIS WO(KIDNEY STONE) PROCEDURE: CT urinary tract, rule out kidney stone. TECHNIQUE: Multiple contiguous axial images were obtained through the abdomen and pelvis without the use of intravenous contrast. Auto Exposure Controls were utilized during the CT exam to meet ALARA standards for radiation dose reduction. INDICATION: Diffuse abdominal pain. COMPARISON: 10/21/2011. DISCUSSION: Atelectasis or scarring noted within the lung bases. Normal heart size. No pleural or pericardial fluid. Fatty hepatomegaly is present. The gallbladder is unremarkable. Marked inflammatory changes are noted along the entirety of the pancreas suggesting acute pancreatitis. No abscess or pseudocyst formation identified. The stomach, spleen, and adrenal glands are unremarkable. No renal stone or hydronephrosis. No obstruction, pneumatosis, or pneumoperitoneum. The prostate and urinary bladder are unremarkable. The appendix is normal. No ascites or pathologically enlarged lymph nodes identified. No acute osseous abnormality identified. Advanced degenerative disc disease noted at L5-S1. IMPRESSION: 1. Inflammatory changes noted along the pancreas as described, consistent with acute pancreatitis. 2. Agree with preliminary report. Dictated on workstation # [id number] Dict: 07/19/20 0647 Trans: 07/19/20 0[address] [facility] [phone] Interpreted by: MARAL GUTIERREZ MD Electronically signed by: Assessment/Plan Assessment/Plan Assessment & Plan (1) DKA, type 2 Status: Acute Assessment & Plan: 07/20: Continue Insulin gtts until CO2 improves, will start 1/2 long acting insulin tonight and hope to get patient off drip in the AM Qualifiers: Qualified Codes: E11.10 - Type 2 diabetes mellitus with ketoacidosis without coma (2) Acute pancreatitis Status: Acute Assessment & Plan: 07/20: Likely 2/2 to elevated TG, Gallbladder normal on US today, Will start diet as pain is improved, will switch to PO pain medication, d/c IV morphine, start bowel medications Qualifiers: Qualified Codes: K85.90 - Acute pancreatitis without necrosis or infection, unspecified (3) Uncontrolled insulin dependent diabetes mellitus Status: Chronic (4) High triglycerides Status: Chronic (5) Hepatic steatosis Status: Chronic Assessment & Plan: 07/20: Seen on US Clinical Quality Measures DVT/VTE Risk/Contraindication: Risk Factor Score Per Nursin RFS Level Per Nursing on Admit: 3=High PATRICIA JUNG MD 07/21/201938: Subjective Subjective/Events-last exam Patient doing well this AM. Tolerating PO diet. Will transition off insulin gtts today,. Review of Systems General: No Chills, No Fatigue Pulmonary: No Dyspnea, No Cough Cardiovascular: No: Chest Pain, Palpitations, Edema Gastrointestinal: Diarrhea; No: Nausea, Vomiting, Abdominal Pain, Constipation Genitourinary: No Dysuria, No Incontinence Neurological: No: Weakness, Numbness Objective Exam General: Alert, Oriented X3, Cooperative, No Acute Distress HEENT: Mucous Memb Moist/Schriever Lungs: Clear to Auscultation, Normal Air Movement Heart: Regular Rate, No Murmurs Abdomen: Normal Bowel Sounds, Soft, No Tenderness Extremities: No Edema, No Tenderness/Swelling Neuro: Normal Speech, Strength at 5/5 X4 Ext, Sensation Intact, Cranial Nerves 3-12 NL Assessment/Plan Assessment/Plan (1) DKA, type 2 Status: Acute Assessment & Plan: 07/20: Continue Insulin gtts until CO2 improves, will start 1/2 long acting insulin tonight and hope to get patient off drip in the AM 07/21: Restart Sub Cut Insulin and transition off insulin gtts, transfer to floor Qualifiers: Qualified Codes: E11.10 - Type 2 diabetes mellitus with ketoacidosis without coma (2) Acute pancreatitis Status: Acute Assessment & Plan: 07/20: Likely 2/2 to elevated TG, Gallbladder normal on US today, Will start diet as pain is improved, will switch to PO pain medication, d/c IV morphine, start bowel medications 07/21: Pain resolved, tolerated PO diet Qualifiers: Qualified Codes: K85.90 - Acute pancreatitis without necrosis or infection, unspecified (3) Hepatic steatosis Status: Chronic Assessment & Plan: 07/20: Seen on US (4) Uncontrolled insulin dependent diabetes mellitus Status: Chronic (5) Hyperlipidemia Status: Acute Assessment & Plan: 07/21: Statin Qualifiers: Qualified Codes: E78.5 - Hyperlipidemia, unspecified MITCHELL KIRK MED STUDENT Jul 21, 2020 09:00 PATRICIA JUNG MD Jul 21, 2020 19:39
--- NOTE | 2020-07-21 10:20 | NUR ---
THIS NURSE CALLED REPORT TO MARIA FERNANDA PERERA. PT WILL TRANSFER DOWN TO THE FLOOR ONCE INSULIN DRIP IS SHUT OFF. THIS NURSE WILL NOTIFIED MARIA FERNANDA WHEN PT IS READY TO TRANSFER.
[2020-07-21 10:46] LABS: BILIRUBIN,URINE NEGATIVE (NEGATIVE); CLARITY,URINE CLEAR; COLOR,URINE YELLOW; GLUCOSE, URINE (UA) 3+ (NEGATIVE); KETONES,URINE NEGATIVE (NEGATIVE); LEUKOCYTE ESTERASE ,URINE NEGATIVE (NEGATIVE); NITRITE,URINE NEGATIVE (NEGATIVE); PH,URINE 6.5 (5-9); PROTEIN,URINE NEGATIVE (NEGATIVE)
[2020-07-21 10:54] LABS: BACTERIA,URINE NEGATIVE /HPF
--- NOTE | 2020-07-21 11:35 | Progress Note - Surgery ---
XIOMARA CAM MED STUDENT 07/21/20 1135: Subjective Date Seen by a Provider: Jul 21, 2020 Time Seen by a Provider: 06:50 Subjective/Events-last exam Juventino states his pain is the same as yesterday, barely noticable at rest and worse with palpation but unaffected by movement. His pain is still upper and left sided abdominal pain. He denies fever, chills, nausea, chest pain, SOB, constipation, diarrhea. Focused Exam Lactate Level 07/19/20 16:32: Lactic Acid Level 1.15 Objective Exam Vital Signs Date Time Temp Pulse Resp B/P (MAP) Pulse Ox O2 Delivery O2 Flow Rate FiO2 07/21/20 08:50 36.2 07/21/20 08:00 Room Air 07/21/20 06:39 92 07/21/20 06:00 90 12 153/97 (115) 95 Room Air 07/21/20 05:00 90 20 153/92 (112) 96 Room Air 07/21/20 04:00 Room Air 07/21/20 04:00 90 26 138/86 (103) 96 Room Air 07/21/20 03:00 100 27 123/76 (92) 93 Room Air 07/21/20 02:00 97 13 159/93 (115) 92 Room Air 07/21/20 01:00 105 14 149/85 (106) 95 Room Air 07/21/20 01:00 105 07/21/20 00:00 Room Air 07/21/20 00:00 92 22 150/100 (117) 94 Room Air 07/20/20 23:00 117 17 135/97 (110) Room Air 07/20/20 22:00 101 23 175/101 (125) 97 Room Air 07/20/20 21:00 108 25 158/100 (119) 96 Room Air 07/20/20 20:00 108 26 162/105 (124) 96 Room Air 07/20/20 20:00 36.8 07/20/20 20:00 Room Air 07/20/20 19:00 109 25 171/106 (127) 96 Room Air 07/20/20 19:00 109 07/20/20 18:00 100 29 152/103 (119) 97 Room Air 07/20/20 17:00 98 11 122/91 (101) 97 Room Air 07/20/20 16:00 Room Air 07/20/20 16:00 37.3 07/20/20 16:00 97 20 136/82 (100) 96 Room Air 07/20/20 15:00 96 18 129/78 (95) 96 Room Air 07/20/20 14:00 107 27 138/94 (109) 95 Room Air 07/20/20 13:00 107 27 138/94 (109) 95 Room Air 07/20/20 12:43 113 07/20/20 12:00 138/83 (101) 97 Room Air 07/20/20 12:00 Room Air I & O 07/21/20 07:00 Intake Total 4510 ml Output Total 5375 ml Balance -865 ml Capillary Refill : Less Than 3 Seconds General Appearance: No Apparent Distress, Obese HEENT: PERRL/EOMI; No Scleral Icterus (L), No Scleral Icterus (R) Neck: Full Range of Motion, Normal Inspection, Supple Respiratory: Chest Non Tender, Lungs Clear, Normal Breath Sounds, No Accessory Muscle Use, No Respiratory Distress Cardiovascular: Regular Rate, Rhythm, No Edema, No Murmur, Normal Peripheral Pulses Peripheral Pulses: 2+ Carotid (R), 2+ Carotid (L), 2+ Dorsalis Pedis (R), 2+ Left Dors-Pedis (L), 2+ Radial Pulses (R), 2+ Radial Pulses (L) Gastrointestinal: normal bowel sounds, soft, no organomegaly, no pulsatile mass; No guarding, No rebound; tenderness (Epigastric and LUQ) Extremity: Normal Capillary Refill, Normal Inspection, Non Tender, No Calf Tenderness, No Pedal Edema Neurologic/Psychiatric: Alert, Oriented x3, Normal Mood/Affect Skin: Normal Color, Warm/Dry Lymphatic: No Adenopathy Results Lab Laboratory Tests 07/20/20 11:47: Sodium Level 138, Potassium Level 3.6, Chloride Level 113H, Carbon Dioxide Level 17L, Anion Gap 8, Blood Urea Nitrogen 5L, Creatinine 0.59L, Estimat Glomerular Filtration Rate > 60, BUN/Creatinine Ratio 8, Glucose Level 153H, Calcium Level 9.4, Phosphorus Level 1.3L 07/20/20 12:20: Glucometer 185H 07/20/20 13:34: Glucometer 105 07/20/20 14:36: Glucometer 153H 07/20/20 15:34: Glucometer 133H 07/20/20 15:55: Sodium Level 137, Potassium Level 3.5L, Chloride Level 113H, Carbon Dioxide Level 16L, Anion Gap 8, Blood Urea Nitrogen 5L, Creatinine 0.55L, Estimat Glomerular Filtration Rate > 60, BUN/Creatinine Ratio 9, Glucose Level 125H, Calcium Level 9.2 07/20/20 16:35: Glucometer 116H 07/20/20 17:37: Glucometer 147H 07/20/20 18:26: Glucometer 185H 07/20/20 19:48: Glucometer 196H 07/20/20 20:11: Sodium Level 135, Potassium Level 3.7, Chloride Level 110H, Carbon Dioxide Level 17L, Anion Gap 8, Blood Urea Nitrogen 5L, Creatinine 0.63, Estimat Glomerular Filtration Rate > 60, BUN/Creatinine Ratio 8, Glucose Level 187H, Calcium Level 9.4 07/20/20 21:00: Glucometer 148H 07/20/20 22:04: Glucometer 125H 07/20/20 23:10: Glucometer 132H 07/21/20 00:16: Glucometer 147H 07/21/20 00:20: Sodium Level 138, Potassium Level 3.5L, Chloride Level 112H, Carbon Dioxide Level 19L, Anion Gap 7, Blood Urea Nitrogen 6L, Creatinine 0.57L, Estimat Glomerular Filtration Rate > 60, BUN/Creatinine Ratio 11, Glucose Level 109H, Calcium Level 9.3 07/21/20 01:04: Glucometer 90 07/21/20 02:11: Glucometer 101 07/21/20 03:08: White Blood Count 7.3, Red Blood Count 3.84L, Hemoglobin 11.4L, Hematocrit 33L, Mean Corpuscular Volume 87, Mean Corpuscular Hemoglobin 30, Mean Corpuscular Hemoglobin Concent 34, Red Cell Distribution Width 14.6H, Platelet Count 173, Mean Platelet Volume 11.1, Immature Granulocyte % (Auto) 1, Neutrophils (%) (Auto) 86H, Lymphocytes (%) (Auto) 9L, Monocytes (%) (Auto) 3, Eosinophils (%) (Auto) 1, Basophils (%) (Auto) 0, Neutrophils # (Auto) 6.3, Lymphocytes # (Auto) 0.6L, Monocytes # (Auto) 0.2, Eosinophils # (Auto) 0.1, Basophils # (Auto) 0.0, Immature Granulocyte # (Auto) 0.0, Sodium Level 138, Potassium Level 4.3, Chloride Level 112H, Carbon Dioxide Level 18L, Anion Gap 8, Blood Urea Nitrogen 6L, Creatinine 0.59L, Estimat Glomerular Filtration Rate > 60, BUN/Creatinine Ratio 10, Glucose Level 122H, Calcium Level 9.1, Phosphorus Level 1.2L, Magnesium Level 1.7, Beta-Hydroxybutyrate (Chem panel) 1.53H 07/21/20 03:35: Glucometer 131H 07/21/20 05:01: Glucometer 178H 07/21/20 06:40: Glucometer 177H 07/21/20 07:55: Sodium Level 136, Potassium Level 3.7, Chloride Level 108H, Carbon Dioxide Level 17L, Anion Gap 11, Blood Urea Nitrogen 5L, Creatinine 0.62, Estimat Glomerular Filtration Rate > 60, BUN/Creatinine Ratio 8, Glucose Level 199H, Calcium Level 9.2 07/21/20 07:58: Glucometer 202H 07/21/20 09:01: Glucometer 161H 07/21/20 10:07: Glucometer 170H 07/21/20 10:41: Urine Color YELLOW, Urine Clarity CLEAR, Urine pH 6.5, Urine Specific Mittie <=1.005, Urine Protein NEGATIVE, Urine Glucose (UA) 3+H, Urine Ketones NEGATIVE, Urine Nitrite NEGATIVE, Urine Bilirubin NEGATIVE, Urine Urobilinogen 0.2, Urine Leukocyte Esterase NEGATIVE, Urine RBC (Auto) NEGATIVE, Urine RBC NONE, Urine WBC NONE, Urine Squamous Epithelial Cells NONE, Urine Crystals NONE, Urine Bacteria NEGATIVE, Urine Casts NONE, Urine Mucus NEGATIVE, Urine Culture Indicated NO Microbiology 07/19/20 Blood Culture - Preliminary, Resulted No growth 07/19/20 MRSA Screen - Final, Complete MRSA not isolated Assessment/Plan Assessment/Plan Assessment/Plan Pancreatitis Hypertriglyceridemia Cholesterolemia Dehydration Hyponatremia Hyperglycemia DM1 DKA Pt needs IV fluids, pain control, anti-emetics and monitor labs. US was negative for stones, sludge. Pancreatitis likely caused by triglycerides nothing surgical at this point. Medical management of blood sugar. progression to food provided medicine clears him as well Clinical Quality Measures DVT/VTE Risk/Contraindication: Risk Factor Score Per Nursin RFS Level Per Nursing on Admit: 3=High STEVENSON CASTILLO DO 07/21/202042: Subjective Subjective/Events-last exam Patient states he is doing well he only has minimal pain in the epigastric area when he starts to move. He is tolerating diet. He is not having any nausea vomiting fever sweats chills shortness of breath or chest pain. Objective Exam General Appearance: No Apparent Distress, Obese HEENT: PERRL/EOMI, Normal ENT Inspection Neck: Full Range of Motion, Normal Inspection, Supple Respiratory: Chest Non Tender, No Accessory Muscle Use, No Respiratory Distress Cardiovascular: Regular Rate, Rhythm, No Edema Gastrointestinal: soft; No guarding, No rebound; tenderness (Epigastric ) Extremity: Normal Capillary Refill, Normal Inspection, Non Tender, No Calf Tenderness Neurologic/Psychiatric: Alert, Oriented x3, Normal Mood/Affect Skin: Normal Color, Warm/Dry Lymphatic: No Adenopathy Assessment/Plan Assessment/Plan Assessment/Plan Pancreatitis Hypertriglyceridemia Cholesterolemia Dehydration Hyponatremia Hyperglycemia DM1 DKA Pt needs IV fluids, pain control, anti-emetics and monitor labs. US was negative for stones, sludge. Pancreatitis likely caused by triglycerides nothing surgical at this point. Medical management of blood sugar. diet as tolerates Supervisory-Addendum Brief Verification & Attestation Participated in pt care: history, MDM, physical Personally performed: exam, history, MDM, supervision of care Care discussed with: Medical Student Procedures: n/a Results interpretation: Verified all documentation Verification and Attestation of Medical Student E/M Service A medical student performed and documented this service in my presence. I reviewed and verified all information documented by the medical student and made modifications to such information, when appropriate. I personally performed the physical exam and medical decision making. Stevenson Castillo, Jul 21, 2020,20:43 XIOMARA CAM MED STUDENT Jul 21, 2020 11:35 STEVENSON CASTILLO DO Jul 21, 2020 20:43
--- NOTE | 2020-07-21 11:45 | NUR ---
REPORT RECEIVED FROM HORTICULTURAL THERAPIST NERISSA. PATIENT AND DENY ANY NEEDS AT THIS TIME. WILL CONTINUE TO MONITOR.
--- NOTE | 2020-07-21 12:25 | NUR ---
CM/SS: Visited with pt as to his plan for discharge and as to his self pay status Plan: Pt to return home with not identified needs Summary: Pt is in bed at the time of the visit, his significant other/spouse is at the bedside. Pt reports feeling better. Pt is asked about his current health insurance. He indicates that he does not have any insurance. He is asked about financial services. He does report that he has talked with them about his hospital bill. It is likely pt will be able to move to the 4th floor and then discharge to home. Pt has had community health services in the past. This worker will follow up.
--- NOTE | 2020-07-21 14:41 | NUR ---
CALLED DR JUNG. LEFT MESSAGE REGARDING ORDERS NEEDED FOR FOR ACCUCHECKS AND SLIDING SCALE INSULIN. Addendum: 07/21/20 at 1716 by MARIA FERNANDA INGRAM RN CALLED DR JUNG. ACCU-CHECKS ACHS SLIDING SCALE B AND 15 UNITS HUMALOG WITH MEALS
[2020-07-21] MEDS: HYDROcodone/APAP 7.5 MG/325 MG (LORTAB, LORCET PLUS) TABLET PO PRN (14:46)
[2020-07-21] MEDS ORDERED: inSUlin ASPART (NovoLOG) 1 UNIT/0.01 ML (CHARGE PER UNIT) ONE ×2 (17:51→17:52)
[2020-07-21] MEDS: inSUlin ASPART (NovoLOG) 1 UNIT/0.01 ML (CHARGE PER UNIT) SC SCH ×3 (17:59→21:01)
[2020-07-22] MEDS: NS IV 1000 ML 1,000 ML IV SCH (01:43)
[2020-07-22 04:40] VITALS: BP 126/70
[2020-07-22 06:04] LABS: BASOPHILS % (AUTO) 0 % (0-10); EOSINOPHILS # (AUTO) 0.1 10^3/uL (0.0-0.3); EOSINOPHILS % (AUTO) 2 % (0-10); HEMATOCRIT 31 % (40-54); HEMOGLOBIN 10.5 g/dL (13.3-17.7); LYMPHOCYTES # (AUTO) 0.5 10^3/uL (1.0-4.0); LYMPHOCYTES % (AUTO) 14 % (12-44); MEAN CORPUSCULAR HEMOGLOBIN 30 pg (25-34); MEAN CORPUSCULAR HGB CONC 34 g/dL (32-36); MEAN CORPUSCULAR VOLUME 87 fL (80-99); MEAN PLATELET VOLUME 10.9 fL (9.0-12.2); MONOCYTES # (AUTO) 0.2 10^3/uL (0.0-1.0); MONOCYTES % (AUTO) 4 % (0-12); NEUTROPHILS % (AUTO) 80 % (42-75); PLATELET COUNT 158 10^3/uL (130-400); WHITE BLOOD COUNT 3.7 10^3/uL (4.3-11.0)
[2020-07-22 06:11] LABS: CHLORIDE 110 MMOL/L (98-107); POTASSIUM 3.5 MMOL/L (3.6-5.0); SODIUM 138 MMOL/L (135-145)
[2020-07-22 06:12] LABS: CALCIUM 8.7 MG/DL (8.5-10.1)
[2020-07-22 06:13] LABS: GLUCOSE 163 MG/DL (70-105)
[2020-07-22 06:14] LABS: CARBON DIOXIDE 20 MMOL/L (21-32)
[2020-07-22 06:16] LABS: PHOSPHORUS 1.6 MG/DL (2.3-4.7)
[2020-07-22 06:17] LABS: BUN/CREATININE RATIO 13; CREATININE SERUM 0.54 MG/DL (0.60-1.30); GFR ESTIMATED > 60
[2020-07-22 06:19] LABS: MAGNESIUM 1.9 MG/DL (1.6-2.4)
[2020-07-22] MEDS: inSUlin ASPART (NovoLOG) 1 UNIT/0.01 ML (CHARGE PER UNIT) SC SCH ×4 (06:28→11:59)
[2020-07-22] MEDS: PIPERACILLIN/TAZOBACTAM (BULK) 4.5 GM in NS (IVPB) 100 ML IV SCH (06:37)
[2020-07-22 07:57] VITALS: BP 125/71
[2020-07-22] MEDS: PANTOPRAZOLE 40 MG (PROTONIX) VIAL IV SCH (08:24)
[2020-07-22] MEDS: ENOXAPARIN 40 MG/0.4 ML (LOVENOX) SYR SC SCH (08:24)
[2020-07-22] MEDS: lisINopril 20 MG (PRINIVIL) TABLET PO SCH (08:24)
[2020-07-22] MEDS: SENNA W/DOCUSATE (SENOKOT S) TABLET PO SCH (08:24)
--- NOTE | 2020-07-22 11:38 | Discharge Summary ---
Diagnosis/Chief Complaint Date of Admission Jul 19, 2020 at 07:26 Date of Discharge Discharge Diagnosis Problems/Diagnosis: (1) DKA, type 2 Assessment & Plan: 07/20: Continue Insulin gtts until CO2 improves, will start 1/2 long acting insulin tonight and hope to get patient off drip in the AM 07/21: Restart Sub Cut Insulin and transition off insulin gtts, transfer to floor Qualifiers: Qualified Codes: E11.10 - Type 2 diabetes mellitus with ketoacidosis without coma Status: Acute (2) Acute pancreatitis Assessment & Plan: 07/20: Likely 2/2 to elevated TG, Gallbladder normal on US today, Will start diet as pain is improved, will switch to PO pain medication, d/c IV morphine, start bowel medications 07/21: Pain resolved, tolerated PO diet Qualifiers: Qualified Codes: K85.90 - Acute pancreatitis without necrosis or infection, unspecified Status: Acute (3) Hepatic steatosis Assessment & Plan: 07/20: Seen on US Status: Chronic (4) Uncontrolled insulin dependent diabetes mellitus Status: Chronic (5) Hyperlipidemia Assessment & Plan: 07/21: Statin Qualifiers: Qualified Codes: E78.5 - Hyperlipidemia, unspecified Status: Acute Discharge Summary-Simple/Stand Consultations Discharge Physical Examination Allergies: Coded Allergies: NKANo Known Allergies (Verified Allergy, Unknown, 08/11/06) Vitals & I&Os Vital Sign - Last 12Hours Date Time Temp Pulse Resp B/P (MAP) Pulse Ox O2 Delivery O2 Flow Rate FiO2 07/22/20 08:00 Room Air 07/22/20 07:57 36.3 89 18 125/71 (89) 98 07/19/20 20:15 Intake and Output 07/22/20 00:00 Intake Total 1880 ml Balance 1880 ml Hospital Course See final discharge diagnosis. Radiology Reviewed Date of Exam:07/19/20 CT ABD/PELVIS WO(KIDNEY STONE) PROCEDURE: CT urinary tract, rule out kidney stone. TECHNIQUE: Multiple contiguous axial images were obtained through the abdomen and pelvis without the use of intravenous contrast. Auto Exposure Controls were utilized during the CT exam to meet ALARA standards for radiation dose reduction. INDICATION: Diffuse abdominal pain. COMPARISON: 10/21/2011. DISCUSSION: Atelectasis or scarring noted within the lung bases. Normal heart size. No pleural or pericardial fluid. Fatty hepatomegaly is present. The gallbladder is unremarkable. Marked inflammatory changes are noted along the entirety of the pancreas suggesting acute pancreatitis. No abscess or pseudocyst formation identified. The stomach, spleen, and adrenal glands are unremarkable. No renal stone or hydronephrosis. No obstruction, pneumatosis, or pneumoperitoneum. The prostate and urinary bladder are unremarkable. The appendix is normal. No ascites or pathologically enlarged lymph nodes identified. No acute osseous abnormality identified. Advanced degenerative disc disease noted at L5-S1. IMPRESSION: 1. Inflammatory changes noted along the pancreas as described, consistent with acute pancreatitis. 2. Agree with preliminary report. Dictated on workstation # [id number] Dict: 07/19/20 0647 Trans: 07/19/20 0651 [facility] [id number] Interpreted by: MARAL GUTIERREZ MD Electronically signed by: Discharge Instructions to patient/family Please see electronic discharge instructions given to patient. Discharge Medications Reviewed and agree with Discharge Medication list on patient's Discharge Instruction sheet Clinical Quality Measures DVT/VTE Risk/Contraindication: Risk Factor Score Per Nursin RFS Level Per Nursing on Admit: 3=High PATRICIA JUNG MD Jul 22, 2020 11:38
--- NOTE | 2020-07-22 11:43 | Discharge Summary ---
Discharge [facility] Reconcile Patient Problems Problems Reviewed?: Yes Discharge Medications New, Converted or Re-Newed RX: Other Continued Medications: Acetaminophen (Tylenol) 325 Mg Tablet 650 MG PO Q6H PRN for PAIN-MILD (1-4), TAB TAKES 2 (325MG) TABLETS Atorvastatin Calcium (Atorvastatin Calcium) 80 Mg Tablet 80 MG PO DAILY, TAB LAST FILLED 05/25/2020 #90/90 DAY SUPPLY Canagliflozin (Invokana) 300 Mg Tablet 300 MG PO DAILY, TAB LAST FILLED 05/25/2020 #90/90 DAY SUPPLY Fenofibrate (Fenofibrate) 160 Mg Tablet 160 MG PO DAILY, TAB LAST FILLED 05/25/2020 #90/90 DAY SUPPLY Insulin Detemir (Levemir Flextouch) 100 Unit/1 Ml Insuln.pen 70 UNIT SQ BID, EA LAST FILLED 06/10/2020 #45 Insulin Lispro (Humalog Kwikpen) 100 Unit/1 Ml Insuln.pen 25 UNIT SQ TIDAC, EA LAST FILLED 07/20/2020 #45 [place]-3 Acid Ethyl Esters (Lovaza) 1 Gm Capsule 1 GM PO DAILY, CAP LAST FILLED 07/20/2020 #90/90 DAY SUPPLY Pioglitazone HCl (Pioglitazone HCl) 30 Mg Tablet 30 MG PO DAILY, TAB LAST FILLED 05/25/2020 #90/90 DAY SUPPLY Quinapril HCl (Quinapril HCl) 20 Mg Tablet 20 MG PO DAILY, TAB Sitagliptin Phos/Metformin HCl (Janumet 50-1,000 mg Tablet) 1 Each Tablet 1 EACH PO BID, TAB LAST FILLED 07/20/2020 #180/90 DAY SUPPLY Discontinued Medications: Ibuprofen (Ibuprofen) 200 Mg Tablet 600 MG PO Q6H PRN for PAIN-MILD (1-4), TAB TAKES 3 (200MG) TABLETS Patient Instructions Goal/Follow Up Appt: Nati with Theodora Rodriguez on Aug 01 @ 120 PM Patient Instructions: - Make sure you are checking your blood sugar fasting in the AM and 2 hrs after meals, Report blood sugars over 300 to Theodora, Bring Blood sugar log into your next appt Activity & Diet Discharge Diet: ADA Diet Activity as Tolerated: Yes Copy Copies To 1: [facility] R MD Jul 22, 2020 11:43
[2020-07-22 12:10] VITALS: BP 125/71
--- NOTE | 2020-07-22 18:02 | Progress Note - Surgery ---
XIOM[employer] CAM MED STUDENT 07/22/201801: Subjective Date Seen by a Provider: Jul 22, 2020 Time Seen by a Provider: 07:00 Subjective/Events-last exam Juventino is doing well. States no pain at rest, no pain with eating or movement, has been eating well. Mild pain with pressing on the abdomen. Objective Exam Vital Signs Date Time Temp Pulse Resp B/P (MAP) Pulse Ox O2 Delivery O2 Flow Rate FiO2 07/22/20 12:10 36.3 89 18 125/71 98 Room Air 07/22/20 08:00 Room Air 07/22/20 07:57 36.3 89 18 125/71 (89) 98 Room Air 07/22/20 04:40 36.8 88 18 126/70 (88) 97 Room Air 07/21/20 23:13 37.1 89 18 118/69 (85) 96 Room Air 07/21/20 21:10 Room Air 07/21/20 19:26 36.8 88 18 121/74 (90) 96 Room Air I & O 07/22/20 07:00 Intake Total 3930 ml Output Total 975 ml Balance 2955 ml Capillary Refill : Less Than 3 Seconds General Appearance: No Apparent Distress, Obese HEENT: PERRL/EOMI, Normal ENT Inspection Neck: Full Range of Motion, Normal Inspection, Supple Respiratory: Chest Non Tender, No Accessory Muscle Use, No Respiratory Distress Cardiovascular: Regular Rate, Rhythm, No Edema Peripheral Pulses: 2+ Carotid (R), 2+ Carotid (L), 2+ Dorsalis Pedis (R), 2+ Left Dors-Pedis (L), 2+ Radial Pulses (R), 2+ Radial Pulses (L) Gastrointestinal: soft; No guarding, No rebound; tenderness (mild Epigastric ) Extremity: Normal Capillary Refill, Normal Inspection, Non Tender, No Calf Tenderness Neurologic/Psychiatric: Alert, Oriented x3, Normal Mood/Affect Skin: Normal Color, Warm/Dry Lymphatic: No Adenopathy Results Lab Laboratory Tests 07/21/20 20:47: Glucometer 174H 07/22/20 03:43: White Blood Count 3.7L, Red Blood Count 3.56L, Hemoglobin 10.5L, Hematocrit 31L, Mean Corpuscular Volume 87, Mean Corpuscular Hemoglobin 30, Mean Corpuscular Hem oglobin Concent 34, Red Cell Distribution Width 14.6H, Platelet Count 158, Mean Platelet Volume 10.9, Immature Granulocyte % (Auto) 0, Neutrophils (%) (Auto) 80H, Lymphocytes (%) (Auto) 14, Monocytes (%) (Auto) 4, Eosinophils (%) (Auto) 2, Basophils (%) (Auto) 0, Neutrophils # (Auto) 3.0, Lymphocytes # (Auto) 0.5L, Monocytes # (Auto) 0.2, Eosinophils # (Auto) 0.1, Basophils # (Auto) 0.0, Immature Granulocyte # (Auto) 0.0, Sodium Level 138, Potassium Level 3.5L, Chloride Level 110H, Carbon Dioxide Level 20L, Anion Gap 8, Blood Urea Nitrogen 7, Creatinine 0.54L, Estimat Glomerular Filtration Rate > 60, BUN/Creatinine Ratio 13, Glucose Level 163H, Calcium Level 8.7, Phosphorus Level 1.6L, Magnesium Level 1.9 07/22/20 10:36: Glucometer 184H Microbiology 07/19/20 Blood Culture - Preliminary, Resulted No growth 07/19/20 MRSA Screen - Final, Complete MRSA not isolated Assessment/Plan Assessment/Plan Assessment/Plan Pancreatitis Hypertriglyceridemia Cholesterolemia Dehydration Hyponatremia Hyperglycemia DM1 DKA Pt needs IV fluids, pain control, anti-emetics and monitor labs. US was negative for stones, sludge. Pancreatitis likely caused by triglycerides nothing surgical at this point. Medical management of blood sugar. Doing well, OK to go home from surgical perspective Clinical Quality Measures DVT/VTE Risk/Contraindication: Risk Factor Score Per Nursin RFS Level Per Nursing on Admit: 3=High STEVENSON CASTILLO DO 07/22/204: Subjective Subjective/Events-last exam Patient with no complaints at this time. He is tolerating diet. No pain in his epigastric area except for when he moves significantly. Patient denies any nausea vomiting fever sweats chills shortness of breath or chest pain. Objective Exam General Appearance: No Apparent Distress, Obese HEENT: PERRL/EOMI, Normal ENT Inspection Neck: Full Range of Motion, Normal Inspection, Supple Respiratory: Chest Non Tender, No Accessory Muscle Use, No Respiratory Distress Cardiovascular: Regular Rate, Rhythm, No JVD Gastrointestinal: soft; No guarding, No rebound; tenderness (Minimal epigastric ) Extremity: Normal Capillary Refill, Normal Inspection, Non Tender, No Calf Tenderness Neurologic/Psychiatric: Alert, Oriented x3, Normal Mood/Affect Skin: Normal Color, Warm/Dry Lymphatic: No Adenopathy Assessment/Plan Assessment/Plan Assessment/Plan Pancreatitis Hypertriglyceridemia Cholesterolemia Dehydration Hyponatremia Hyperglycemia DM1 DKA US was negative for stones, sludge. Pancreatitis likely caused by triglycerides nothing surgical at this point. Medical management Doing well, OK to go home from surgical perspective Supervisory-Addendum Brief Verification & Attestation Participated in pt care: history, MDM, physical Personally performed: exam, history, MDM, supervision of care Care discussed with: Medical Student Procedures: n/a Results interpretation: Verified all documentation Verification and Attestation of Medical Student E/M Service A medical student performed and documented this service in my presence. I reviewed and verified all information documented by the medical student and made modifications to such information, when appropriate. I personally performed the physical exam and medical decision making. Stevenson Castillo, Jul 22, 2020,21:04 [employer] [employer] STUDENT Jul 22, 2020 18:02 STEVENSON CASTILLO DO Jul 22, 2020 21:04
== END 2020-07-22 12:10 | disposition home or self-care (01) | DRG 438 ==
LOC: EDUNIT# 02:28 → ER 02:30 → ICU 07:26 → 4TH 07-21 11:44
PROVIDERS: ADMIT Internal Medicine; ATTEND Family Medicine
DX: K85.90 Acute pancreatitis without necrosis or infection, unspecified (principal); E11.10 Type 2 diabetes mellitus with ketoacidosis without coma; E87.1 Hypo-osmolality and hyponatremia; E78.1 Pure hyperglyceridemia; E78.00 Pure hypercholesterolemia, unspecified; E86.0 Dehydration; D75.1 Secondary polycythemia; I10 Essential (primary) hypertension; E66.9 Obesity, unspecified; R63.0 Anorexia; F17.210 Nicotine dependence, cigarettes, uncomplicated; K76.0 Fatty (change of) liver, not elsewhere classified; G47.33 Obstructive sleep apnea (adult) (pediatric); Z79.4 Long term (current) use of insulin; Z68.37 Body mass index [BMI] 37.0-37.9, adult
CPT/HCPCS: 36415; 71045; 74022; 74176; 76705; 80048; 80053; 80061; 80320; 81000; 82010; 82150; 82962; 83036; 83605; 83690; 83735; 84100; 84478; 85007; 85025; 85027; 85610; 85730; 87040; 87081; 93005; 93041